=== PATIENT | female | born 1950 | race Caucasian/White ===

== ENCOUNTER 2020-11-06 09:43 | Outpatient (REF) | payer BC, SELFPAY ==
[2020-11-06 11:13] LABS: MANUAL DIFF FLAG NO
[2020-11-06 11:20] LABS: Basophils Percent Auto 0.8 % (0-2); Eosinophils Absolute Auto 0.3 X10*3/uL (0.0-0.4); Eosinophils Percent Auto 7.1 % (0-4); Hematocrit 38.3 % (37-47); Imm Gran Abs Auto 0.01 X10*3/uL (0.00-0.03); Imm Gran Pct Auto 0.2 % (0.0-0.4); Lymphocytes Absolute Auto 1.5 X10*3/uL (1.2-4.9); Lymphocytes Percent Auto 30.2 % (20-40); Mean Corpuscular HGB Conc 31.3 g/dl (31.0-35.0); Mean Corpuscular Hemoglobin 28.8 pg (27.0-33.0); Mean Corpuscular Volume 92.1 fL (80-98); Mean Platelet Volume 9.7 fL (9.4-12.3); Monocytes Absolute Auto 0.4 X10*3/uL (0.1-1.2); Monocytes Percent Auto 8.3 % (2-11); Neutrophils Absolute Auto 2.6 X10*3/uL (2.0-8.3); Neutrophils Percent Auto 53.4 % (45-73); Platelet Count 298 X10*3/uL (160-400); Red Blood Count 4.16 X10*6/uL (4.20-5.50); Red Cell Distribution Width 12.9 % (11.0-16.0); White Blood Count 4.8 X10*3/uL (4.8-10.8)
[2020-11-06 11:42] LABS: Alanine Aminotransferase 13 U/L (0-31); Albumin Level 4.2 g/dL (3.5-5.0); Alkaline Phosphatase 65 U/L (39-117); Anion Gap 12 (12-20); Aspartate Amino Transferase 19 U/L (5-31); Bilirubin Total 0.6 mg/dL (0.0-1.0); Blood Urea Nitrogen 12 mg/dL (9-16); Calcium 9.1 mg/dL (8.4-10.2); Carbon Dioxide 28 mmol/L (22-29); Chloride 105 mmol/L (96-108); Cholesterol 193 mg/dL; Estimated Glomerular Filt Rate > 60; Glucose Fasting 89 mg/dL (60-99); HDL Cholesterol 55 mg/dL; LDL Cholesterol Calculated 93 mg/dl; Potassium 4.1 mmol/l (3.3-5.1); Sodium 141 mmol/L (135-145); Total Protein 6.6 g/dL (6.5-8.0); Triglycerides 228 mg/dL
[2020-11-06 12:03] LABS: Ferritin 8 ng/mL (10-250); Vitamin B12 313 pg/mL (200-900); Vitamin D 25-OH Total 22.1 ng/mL (>30)
== END 2020-11-06 09:44 | disposition home or self-care (01) ==
LOC: HO.HMGCLDS 09:43
PROVIDERS: PCP Internal Medicine; Visit Provider Internal Medicine
DX: E78.9 Disorder of lipoprotein metabolism, unspecified (principal); I10 Essential (primary) hypertension; K21.9 Gastro-esophageal reflux disease without esophagitis; E55.9 Vitamin D deficiency, unspecified; R79.0 Abnormal level of blood mineral
CPT/HCPCS: 36415; 80053; 80061; 82306; 82607; 82728; 85025

== ENCOUNTER 2021-05-13 09:07 | Outpatient (REF) | payer BC, SELFPAY ==
[2021-05-13 11:12] LABS: MANUAL DIFF FLAG NO
[2021-05-13 11:21] LABS: Basophils Percent Auto 0.7 % (0-2); Eosinophils Absolute Auto 0.2 X10*3/uL (0.0-0.4); Eosinophils Percent Auto 4.4 % (0-4); Hematocrit 34.4 % (37-47); Hemoglobin 10.9 g/dl (12.0-16.0); Imm Gran Abs Auto 0.01 X10*3/uL (0.00-0.03); Imm Gran Pct Auto 0.2 % (0.0-0.4); Lymphocytes Absolute Auto 1.1 X10*3/uL (1.2-4.9); Lymphocytes Percent Auto 25.2 % (20-40); Mean Corpuscular HGB Conc 31.7 g/dl (31.0-35.0); Mean Corpuscular Volume 88.4 fL (80-98); Mean Platelet Volume 9.4 fL (9.4-12.3); Monocytes Absolute Auto 0.5 X10*3/uL (0.1-1.2); Monocytes Percent Auto 12.4 % (2-11); Neutrophils Absolute Auto 2.4 X10*3/uL (2.0-8.3); Neutrophils Percent Auto 57.1 % (45-73); Platelet Count 299 X10*3/uL (160-400); Red Blood Count 3.89 X10*6/uL (4.20-5.50); Red Cell Distribution Width 14.5 % (11.0-16.0); White Blood Count 4.3 X10*3/uL (4.8-10.8)
[2021-05-13 11:34] LABS: Alanine Aminotransferase 12 U/L (0-31); Albumin Level 4.1 g/dL (3.5-5.0); Alkaline Phosphatase 60 U/L (39-117); Anion Gap 12 (12-20); Aspartate Amino Transferase 21 U/L (5-31); Bilirubin Direct < 0.2 mg/dL (0.0-0.5); Bilirubin Total 0.3 mg/dL (0.0-1.0); Blood Urea Nitrogen 18 mg/dL (9-16); Calcium 9.6 mg/dL (8.4-10.2); Carbon Dioxide 26 mmol/L (22-29); Chloride 108 mmol/L (96-108); Estimated Glomerular Filt Rate > 60; Glucose Random 91 mg/dL (60-115); Potassium 4.3 mmol/L (3.3-5.1); Sodium 142 mmol/L (135-145); Total Protein 6.5 g/dL (6.5-8.0)
[2021-05-13 11:56] LABS: Ferritin 3 ng/mL (10-250)
[2021-05-13 12:26] LABS: Vitamin B12 869 pg/mL (200-900)
[2021-05-14 06:46] LABS: LDL Cholesterol Direct 117 mg/dL (<100)
== END 2021-05-13 09:08 | disposition home or self-care (01) ==
LOC: HO.HMGCLDS 09:07
PROVIDERS: PCP Internal Medicine; Visit Provider Internal Medicine
DX: Z00.01 Encounter for general adult medical examination with abnormal findings (principal); E53.8 Deficiency of other specified B group vitamins; E61.1 Iron deficiency; E78.9 Disorder of lipoprotein metabolism, unspecified; J45.909 Unspecified asthma, uncomplicated; K21.9 Gastro-esophageal reflux disease without esophagitis
CPT/HCPCS: 36415; 80048; 80076; 82607; 82728; 83721; 85025

== ENCOUNTER 2021-06-13 09:03 | Outpatient (REF) | payer BC, SELFPAY ==
[2021-06-13 11:25] LABS: MANUAL DIFF FLAG NO
[2021-06-13 11:39] LABS: Basophils Percent Auto 0.6 % (0-2); Eosinophils Absolute Auto 0.2 X10*3/uL (0.0-0.4); Eosinophils Percent Auto 5.2 % (0-4); Hematocrit 38.5 % (37-47); Hemoglobin 12.3 g/dl (12.0-16.0); Imm Gran Abs Auto 0.02 X10*3/uL (0.00-0.03); Imm Gran Pct Auto 0.4 % (0.0-0.4); Lymphocytes Absolute Auto 1.1 X10*3/uL (1.2-4.9); Mean Corpuscular HGB Conc 31.9 g/dl (31.0-35.0); Mean Corpuscular Hemoglobin 28.6 pg (27.0-33.0); Mean Corpuscular Volume 89.5 fL (80-98); Mean Platelet Volume 9.9 fL (9.4-12.3); Monocytes Absolute Auto 0.5 X10*3/uL (0.1-1.2); Monocytes Percent Auto 10.4 % (2-11); Neutrophils Absolute Auto 2.8 X10*3/uL (2.0-8.3); Neutrophils Percent Auto 59.4 % (45-73); Platelet Count 314 X10*3/uL (160-400); White Blood Count 4.6 X10*3/uL (4.8-10.8)
== END 2021-06-13 09:04 | disposition home or self-care (01) ==
LOC: HO.HMGCLDS 09:03
PROVIDERS: PCP Internal Medicine; Visit Provider Internal Medicine
DX: D64.9 Anemia, unspecified (principal); E61.1 Iron deficiency
CPT/HCPCS: 36415; 85025

== ENCOUNTER 2021-08-05 10:46 | Outpatient (REF) | payer BC, SELFPAY ==
[2021-08-05 13:59] LABS: MANUAL DIFF FLAG NO
[2021-08-05 14:08] LABS: Basophils Percent Auto 0.6 % (0-2); Eosinophils Absolute Auto 0.3 X10*3/uL (0.0-0.4); Eosinophils Percent Auto 5.4 % (0-4); Hematocrit 36.4 % (37-47); Hemoglobin 12.2 g/dl (12.0-16.0); Imm Gran Abs Auto 0.02 X10*3/uL (0.00-0.03); Imm Gran Pct Auto 0.4 % (0.0-0.4); Lymphocytes Absolute Auto 1.3 X10*3/uL (1.2-4.9); Lymphocytes Percent Auto 26.6 % (20-40); Mean Corpuscular HGB Conc 33.5 g/dl (31.0-35.0); Mean Corpuscular Hemoglobin 30.2 pg (27.0-33.0); Mean Corpuscular Volume 90.1 fL (80-98); Monocytes Absolute Auto 0.5 X10*3/uL (0.1-1.2); Monocytes Percent Auto 10.3 % (2-11); Neutrophils Absolute Auto 2.7 X10*3/uL (2.0-8.3); Neutrophils Percent Auto 56.7 % (45-73); Platelet Count 275 X10*3/uL (160-400); Red Blood Count 4.04 X10*6/uL (4.20-5.50); Red Cell Distribution Width 14.6 % (11.0-16.0); White Blood Count 4.8 X10*3/uL (4.8-10.8)
[2021-08-05 14:38] LABS: Alanine Aminotransferase 10 U/L (0-31); Alkaline Phosphatase 61 U/L (39-117); Anion Gap 13 (12-20); Aspartate Amino Transferase 17 U/L (5-31); Bilirubin Total 0.6 mg/dL (0.0-1.0); Blood Urea Nitrogen 17 mg/dL (9-16); Calcium 9.3 mg/dL (8.4-10.2); Carbon Dioxide 24 mmol/L (22-29); Chloride 107 mmol/L (96-108); Estimated Glomerular Filt Rate > 60; Glucose Random 99 mg/dL (60-115); Sodium 140 mmol/L (135-145); Total Protein 6.4 g/dL (6.5-8.0)
[2021-08-05 14:42] LABS: Ferritin 30 ng/mL (10-250)
== END 2021-08-05 10:47 | disposition home or self-care (01) ==
LOC: HO.HMGCLDS 10:46
PROVIDERS: PCP Internal Medicine; Visit Provider Internal Medicine
DX: D64.9 Anemia, unspecified (principal); E61.1 Iron deficiency
CPT/HCPCS: 36415; 80053; 82728; 85025

== ENCOUNTER 2022-02-26 11:34 | Outpatient (REF) | payer BC, SELFPAY ==
[2022-02-26 13:42] LABS: MANUAL DIFF FLAG NO
[2022-02-26 13:46] LABS: Basophils Percent Auto 0.6 % (0-2); Eosinophils Absolute Auto 0.3 X10*3/uL (0.0-0.4); Eosinophils Percent Auto 5.1 % (0-4); Hematocrit 38.3 % (37.0-47.0); Hemoglobin 12.2 g/dl (12.0-16.0); Imm Gran Abs Auto 0.01 X10*3/uL (0.00-0.03); Imm Gran Pct Auto 0.2 % (0.0-0.4); Lymphocytes Absolute Auto 1.1 X10*3/uL (1.2-4.9); Lymphocytes Percent Auto 22.1 % (20-40); Mean Corpuscular HGB Conc 31.9 g/dl (31.0-35.0); Mean Corpuscular Hemoglobin 29.6 pg (27.0-33.0); Mean Platelet Volume 9.7 fL (9.4-12.3); Monocytes Absolute Auto 0.5 X10*3/uL (0.1-1.2); Monocytes Percent Auto 10.3 % (2-11); Neutrophils Absolute Auto 3.1 x10*3/uL (2.0-8.3); Neutrophils Percent Auto 61.7 % (45-73); Platelet Count 309 X10*3/uL (160-400); Red Blood Count 4.12 X10*6/uL (4.20-5.50); Red Cell Distribution Width 13.5 % (11.0-16.0); White Blood Count 5.1 X10*3/uL (4.8-10.8)
[2022-02-26 14:02] LABS: Alanine Aminotransferase 13 U/L (0-31); Albumin Level 4.1 g/dL (3.5-5.0); Alkaline Phosphatase 59 U/L (39-117); Anion Gap 11 (12-20); Aspartate Amino Transferase 20 U/L (5-31); Bilirubin Total 0.5 mg/dL (0.0-1.0); Blood Urea Nitrogen 17 mg/dL (9-16); Calcium 9.6 mg/dL (8.4-10.2); Carbon Dioxide 29 mmol/L (22-29); Chloride 105 mmol/L (96-108); Estimated Glomerular Filt Rate > 60; Glucose Random 77 mg/dL (60-115); Sodium 141 mmol/L (135-145); Total Protein 6.9 g/dL (6.5-8.0)
[2022-02-26 14:23] LABS: Ferritin 19 ng/mL (10-250)
[2022-03-03 05:51] LABS: Vitamin D 25-OH, D2 <4 ng/mL; Vitamin D 25-OH, D3 24 ng/mL; Vitamin D 25-OH, Total 24 ng/mL (30-100)
== END 2022-02-26 11:35 | disposition home or self-care (01) ==
LOC: HO.HMGCLDS 11:34
PROVIDERS: PCP Internal Medicine; Visit Provider Internal Medicine
DX: I10 Essential (primary) hypertension (principal); E78.9 Disorder of lipoprotein metabolism, unspecified; J45.909 Unspecified asthma, uncomplicated; D64.9 Anemia, unspecified
CPT/HCPCS: 36415; 80053; 82306; 82728; 85025

== ENCOUNTER 2022-09-11 11:41 | Outpatient (REF) | payer BC, SELFPAY ==
[2022-09-11 13:58] LABS: Hemoglobin 12.8 g/dl (12.0-16.0)
[2022-09-11 14:14] LABS: Alanine Aminotransferase 12 U/L (0-31); Albumin Level 4.3 g/dL (3.5-5.0); Alkaline Phosphatase 65 U/L (39-117); Anion Gap 15 (12-20); Aspartate Amino Transferase 21 U/L (5-31); Blood Urea Nitrogen 13 mg/dL (9-16); Calcium 9.8 mg/dL (8.4-10.2); Carbon Dioxide 28 mmol/L (22-29); Chloride 105 mmol/L (96-108); Cholesterol 223 mg/dL; Estimated Glomerular Filt Rate > 60; Glucose Fasting 95 mg/dL (60-99); HDL Cholesterol 59 mg/dL; LDL Cholesterol Calculated 120 mg/dl; Potassium 4.1 mmol/L (3.3-5.1); Sodium 144 mmol/L (135-145); Total Protein 6.9 g/dL (6.5-8.0); Triglycerides 221 mg/dL
[2022-09-11 14:29] LABS: Bilirubin Total 0.7 mg/dL (0.0-1.0)
[2022-09-11 14:32] LABS: Ferritin 16 ng/mL (10-250)
[2022-09-11 14:39] LABS: Vitamin B12 784 pg/mL (200-900)
== END 2022-09-11 11:42 | disposition home or self-care (01) ==
LOC: HO.HMGCLDS 11:41
PROVIDERS: PCP Internal Medicine; Visit Provider Internal Medicine
DX: E61.1 Iron deficiency (principal); E78.9 Disorder of lipoprotein metabolism, unspecified; I10 Essential (primary) hypertension; J45.909 Unspecified asthma, uncomplicated; K21.9 Gastro-esophageal reflux disease without esophagitis; E53.8 Deficiency of other specified B group vitamins
CPT/HCPCS: 36415; 80053; 80061; 82607; 82728; 85014; 85018

== ENCOUNTER 2023-01-14 09:19 | Outpatient (REF) | payer BC, SELFPAY ==
[2023-01-14 11:13] LABS: MANUAL DIFF FLAG NO
[2023-01-14 11:24] LABS: Basophils Percent Auto 0.6 % (0-2); Eosinophils Absolute Auto 0.3 X10*3/uL (0.0-0.4); Eosinophils Percent Auto 5.2 % (0-4); Hematocrit 38.7 % (37.0-47.0); Hemoglobin 12.4 g/dl (12.0-16.0); Imm Gran Abs Auto 0.01 X10*3/uL (0.00-0.03); Imm Gran Pct Auto 0.2 % (0.0-0.4); Lymphocytes Absolute Auto 1.3 X10*3/uL (1.2-4.9); Lymphocytes Percent Auto 21.3 % (20-40); Mean Corpuscular Hemoglobin 28.8 pg (27.0-33.0); Mean Platelet Volume 9.6 fL (9.4-12.3); Monocytes Absolute Auto 0.7 X10*3/uL (0.1-1.2); Monocytes Percent Auto 10.5 % (2-11); Neutrophils Absolute Auto 3.9 x10*3/uL (2.0-8.3); Neutrophils Percent Auto 62.2 % (45-73); Platelet Count 343 X10*3/uL (160-400); Red Cell Distribution Width 14.2 % (11.0-16.0); White Blood Count 6.3 X10*3/uL (4.8-10.8)
[2023-01-14 11:49] LABS: Alanine Aminotransferase 18 U/L (0-31); Albumin Level 4.1 g/dL (3.5-5.0); Alkaline Phosphatase 67 U/L (39-117); Anion Gap 13 (12-20); Aspartate Amino Transferase 25 U/L (5-31); Bilirubin Total 0.8 mg/dL (0.0-1.0); Blood Urea Nitrogen 23 mg/dL (9-16); Calcium 10.4 mg/dL (8.4-10.2); Carbon Dioxide 27 mmol/L (22-29); Chloride 107 mmol/L (96-108); Cholesterol 230 mg/dL; Estimated Glomerular Filt Rate 54; Glucose Fasting 96 mg/dL (60-99); HDL Cholesterol 64 mg/dL; LDL Cholesterol Calculated 124 mg/dl; Potassium 3.9 mmol/L (3.3-5.1); Sodium 143 mmol/L (135-145); Total Protein 6.6 g/dL (6.5-8.0); Triglycerides 210 mg/dL
[2023-01-14 12:25] LABS: Ferritin 15 ng/mL (10-250); Vitamin B12 968 pg/mL (200-900)
== END 2023-01-14 09:20 | disposition home or self-care (01) ==
LOC: HO.HMGCLDS 09:19
PROVIDERS: PCP Internal Medicine; Visit Provider Internal Medicine
DX: I10 Essential (primary) hypertension (principal); E53.8 Deficiency of other specified B group vitamins; E61.1 Iron deficiency; E78.9 Disorder of lipoprotein metabolism, unspecified; F41.9 Anxiety disorder, unspecified; J45.909 Unspecified asthma, uncomplicated; K21.9 Gastro-esophageal reflux disease without esophagitis
CPT/HCPCS: 36415; 80053; 80061; 82607; 82728; 85025

== ENCOUNTER 2023-09-18 10:33 | Outpatient (AMB) | payer BC, SELFPAY ==
[2023-09-18 10:37] VITALS: BP 144/72; PULSE 81; O2SAT 97; BMI 27.4
--- NOTE | 2023-09-18 10:37 | MHC.PC.OV ---
Vital Signs 09/18/23 10:37 Height 5 ft 2.5 in Weight 152 lb BMI 27.4 BP 144/72 H Blood Pressure Location Rt brachial Position Sitting Pulse 81 Pulse Source Pulse Oximeter Pulse Oximetry (%) 97 Oxygen Delivery Method Room Air Intake Visit Reasons: PE Allergies No Known Allergies Allergy (Verified 02/25/23 13:15) Medication List - Last Reconciled 09/18/23 by Anabell Beard MD albuterol sulfate 90 mcg/actuation 2 puffs PO Q8H PRN 30 days amlodipine 5 mg PO DAILY 90 days calcium carbonate (Tums) PO PRN cholecalciferol (vitamin D3) 25 mcg PO DAILY pravastatin 20 mg PO DAILY 90 days vitamin B complex (B Complex-Vitamin B12 tablet) 1 tab PO DAILY Tobacco use date assessed: 09/18/23 Fall risk assessment: No Falls in past year Last assessed Fall Risk: 09/18/23 Dental Screening Dental Screen Date: 09/18/23 Did you have a dental visit in the last 12 months?: No Did you have a dental problem in the last 6 months where you did not have access to dental care?: No Was dental information given to patient?: Patient has dentist HPI PE HPI Details Patient is 73-year-old female came in today for physical exam Patient says that mammogram was done in February of this year at [facility] She does want have a colonoscopy Blood pressure continued to be slightly elevated, patient is on amlodipine 5 mg She does not want to increase the medication or change it. She said that she was start monitoring blood pressure at home and she will keep a log Patient will return in December for follow-up She is also taking pravastatin for lipid control She will have labs done today she forgot to do the labs She offers no new complaints today. [facility] Medical History Elevated blood pressure reading Breast screening B12 deficiency Iron deficiency Asthma, moderate Chronic GERD Lipid disorder Surgical History History of tooth extraction Family History Father HTN (hypertension) Hyperlipidemia Mother HTN (hypertension) Diabetes mellitus Myocardial infarction Stroke Maternal Grandfather No problems noted. Maternal Grandmother Heart disease Paternal Grandmother Cerebral hemorrhage Paternal Grandfather No problems noted. Brother No problems noted. Sister No problems noted. Daughter No problems noted. Daughter No problems noted. Social History Housing: House Alcohol intake: never Patient Tobacco Use Status: Former Tobacco user Quit Date: 1986 e-Cigarette/Vaping Use: Never Used Second Hand Smoke Exposure: No service: No Current occupational status: retired Cognitive needs: No Hearing needs: No Vision needs: No Questionnaire PHQ-9 Over the last 2 weeks, how often have you been bothered by any of the following problems? 1. Little interest or pleasure in doing things: not at all 2. Feeling down, depressed, or hopeless: not at all 3. Trouble falling or staying asleep, or sleeping too much: not at all 4. Feeling tired or having little energy: not at all 5. Poor appetite or overeating: not at all 6. Feeling bad about yourself - or that you are a failure or have let yourself or your family down: not at all 7. Trouble concentrating on things, such as reading the newspaper or watching television: not at all 8. Moving or speaking so slowly that other people could have noticed. Or the opposite - being so fidgety or restless that you have been moving around a lot more than usual: not at all 9. Thoughts that you would be better off or of hurting yourself in some way: not at all Total score: 0 Depression Screening Interpretation: Negative Depression Screening Done: Yes 65434 - PHQ-9 Billing: Yes Source: Developed by Drs. Julio Cesar Martinez, Jong Sims and colleagues, with an educational walter from [employer]. Thrive Questionnaire Date Thrive assessed: 02/25/23 AUDIT C Alcohol Use Questionnaire (AUDIT-C) 1. How often do you have a drink containing alcohol?: Never 3. How often do you have six or more drinks on one occasion?: Never Total Score: 0 Score Reviewed/Action Taken: Yes ZABRINA-7 AMB Questionnaire ZABRINA-7 Date ZABRINA - 7 assessed: 02/25/23 Source: Developed by Drs. Julio Cesar Martinez, Jong Sims and colleagues, with an educational walter from [employer]. Review of Systems Const Denies chills, Denies fever(s) and Denies headache(s) Eyes Denies blurry vision ENT Denies headache(s), Denies nasal discharge, Denies nasal obstruction, Denies odynophagia and Denies sinus pain Card Denies chest pain at rest and Denies chest pain with activity Resp Denies cough and Denies hemoptysis GI Denies diarrhea, Denies odynophagia, Denies vomiting and Denies hematemesis Reports as per HPI Musc Denies abnormal gait Skin/Breast Reports as per HPI Neuro Denies Neuro-related abnormal movements, Denies Abnormal speech present, Denies abnormal gait, Denies headache(s) and Denies Sensory deficit (Neuro) Psych Denies mood swings and Denies paranoia Endo Reports as per HPI Sammy/Lymph Reports as per HPI Aller/Immun Reports as per HPI Physical exam (Primary Care) Vital Signs: Last Vital Signs Pulse 81 09/18/23 10:37 BP 144/72 H 09/18/23 10:37 Pulse Ox 97 09/18/23 10:37 Oxygen Delivery Method Room Air 09/18/23 10:37 BMI result Body Mass Index 27.4 Tobacco/Smoking Status: Tobacco use Status Tobacco use date assessed 09/18/23 09/18/23 10:42 Patient Tobacco Use Status Former Tobacco user 09/18/23 10:42 e-Cigarette/Vaping Use Never Used 09/18/23 10:42 PHQ-9: PHQ-9 Score PHQ-9: Total score 0 09/18/23 10:58 Depression Screening Interpretation: Negative Thrive Assessment: Date of Thrive Assessment Date Thrive assessed 02/25/23 09/18/23 10:42 Const General: cooperative, comfortable and no acute distress Orientation/consciousness: patient oriented x3 HENMT Head: Yes normocephalic and Yes atraumatic Eyes General: appearance normal, both eyes and all related structures Pupils: Equal, round and reactive pupils present EOM: EOMs intact bilaterally Neck Neck: Yes supple and No lymphadenopathy Thyroid: Thyroid normal Lymphatic: no lymphadenopathy noted Chest Breast/axilla palpation: normal palpation of the breasts Resp Effort & Inspection: normal respiratory effort and able to speak in complete sentences Auscultation: clear to auscultation bilaterally Cardio Heart sounds: S1 normal heart sound present and S2 normal heart sound present GI Palpation (GI): Soft to palpation and nontender Auscultation: normal bowel sounds General: Yes no CVA tenderness Back/Spine/Pelvis Back: no CVA tenderness Skin General skin exam: elasticity normal and turgor normal Neuro General: patient oriented x3 and gait normal Cranial nerves: Yes Equal, round and reactive pupils present Speech: No Abnormal speech present Sensory Exam: No Sensory deficit (Neuro) Coordination: tandem gait normal and Romberg test negative Extrem Other: Severe disfiguring osteoarthritis small joints of hands General: Yes normal exam except as noted and No edema Assessment and Plan Assessment & Plan (1) Encounter for general adult medical examination with abnormal findings: Code(s): Z00.01 - Encounter for general adult medical examination with abnormal findings (2) Lipid disorder: Code(s): E78.9 - Disorder of lipoprotein metabolism, unspecified (3) Chronic GERD: Code(s): K21.9 - Gastro-esophageal reflux disease without esophagitis (4) Hypertension, essential: Code(s): I10 - Essential (primary) hypertension (5) Asthma, mild intermittent: Code(s): J45.20 - Mild intermittent asthma, uncomplicated Qualifiers: Asthma complication type: uncomplicated Qualified Code(s): J45.20 - Mild intermittent asthma, uncomplicated (6) Colonoscopy refused: Code(s): Z53.20 - Procedure and treatment not carried out because of patient's decision for unspecified reasons (7) Osteoarthritis of hands, bilateral: Code(s): M19.041 - Primary osteoarthritis, right hand; M19.042 - Primary osteoarthritis, left hand Qualifiers: Osteoarthritis type: primary Qualified Code(s): M19.041 - Primary osteoarthritis, right hand; M19.042 - Primary osteoarthritis, left hand Plan Patient is 73-year-old female came in today for physical exam Patient says that mammogram was done in February of this year at [facility] She does want have a colonoscopy Blood pressure continued to be slightly elevated, patient is on amlodipine 5 mg She does not want to increase the medication or change it. She said that she was start monitoring blood pressure at home and she will keep a log Patient will return in December for follow-up She is also taking pravastatin for lipid control She will have labs done today she forgot to do the labs She has severe osteoarthritis small joints of hands but still have full function of her hands She offers no new complaints today. Medications: Refilled pravastatin 20 mg PO DAILY 90 tabs 0RF 90 days amlodipine 5 mg PO DAILY 90 tabs 1RF 90 days Coding Level of Care Code Est Pt Prev Care >65y(59125) Diagnoses Encounter for general adult medical examination with abnormal findings Z00.01 Lipid disorder E78.9 Chronic GERD K21.9 Hypertension, essential I10 Mild intermittent asthma without complication J45.20 Asthma complication type: uncomplicated Colonoscopy refused Z53.20 Primary osteoarthritis of both hands M19.041; M19.042 Osteoarthritis type: primary
== END 2023-09-18 10:57 | disposition home or self-care (01) ==
PROVIDERS: Visit Provider Internal Medicine
DX: Z00.00 Encounter for general adult medical examination without abnormal findings (principal); E78.9 Disorder of lipoprotein metabolism, unspecified; K21.9 Gastro-esophageal reflux disease without esophagitis; I10 Essential (primary) hypertension; J45.20 Mild intermittent asthma, uncomplicated; Z53.20 Procedure and treatment not carried out because of patient's decision for unspecified reasons; M19.041 Primary osteoarthritis, right hand; M19.042 Primary osteoarthritis, left hand
CPT/HCPCS: 99397

== ENCOUNTER 2023-09-18 11:00 | Outpatient (REF) | payer BC, SELFPAY ==
[2023-09-18 14:08] LABS: Alanine Aminotransferase 12 U/L (0-31); Albumin Level 4.1 g/dL (3.5-5.0); Alkaline Phosphatase 66 U/L (39-117); Anion Gap 14 (12-20); Aspartate Amino Transferase 20 U/L (5-31); Bilirubin Total 0.4 mg/dL (0.0-1.0); Blood Urea Nitrogen 11 mg/dL (9-16); Carbon Dioxide 26 mmol/L (22-29); Chloride 105 mmol/L (96-108); Cholesterol 190 mg/dL (<200); Estimated Glomerular Filt Rate > 60; Glucose Fasting 96 mg/dL (60-99); HDL Cholesterol 61 mg/dL (>40); LDL Cholesterol Calculated 98 mg/dL (<100); Sodium 141 mmol/L (135-145); Total Protein 7.1 g/dL (6.5-8.0); Triglycerides 158 mg/dL (<150)
[2023-09-18 14:25] LABS: Ferritin 10 ng/mL (10-250)
[2023-09-18 14:26] LABS: Vitamin B12 676 pg/mL (200-900)
[2023-09-22 15:33] LABS: Vitamin D 25-OH, D2 <4 ng/mL; Vitamin D 25-OH, D3 20 ng/mL; Vitamin D 25-OH, Total 20 ng/mL (30-100)
== END 2023-09-18 11:01 | disposition home or self-care (01) ==
LOC: HO.HMGCLDS 11:00
PROVIDERS: PCP Internal Medicine; Visit Provider Internal Medicine
DX: E78.9 Disorder of lipoprotein metabolism, unspecified (principal); K21.9 Gastro-esophageal reflux disease without esophagitis; E53.8 Deficiency of other specified B group vitamins; E61.1 Iron deficiency; I10 Essential (primary) hypertension; J45.20 Mild intermittent asthma, uncomplicated
CPT/HCPCS: 36415; 80053; 80061; 82306; 82607; 82728

== ENCOUNTER 2023-11-09 10:01 | Outpatient (AMB) | payer BC, SELFPAY ==
[2023-11-09 11:51] VITALS: BP 160/90; PULSE 82; TEMP 36.3; O2SAT 96; BMI 27.7
--- NOTE | 2023-11-09 11:51 | AM.OFFWIN_ITS ---
Intake Vital Signs 11/09/23 11:51 Height 5 ft 2.5 in Weight 69.853 kg BMI 27.7 BP 160/90 H Blood Pressure Location Lt brachial Position Sitting Pulse 82 Pulse Source Pulse Oximeter Temp 97.3 F Temp Source Temporal Artery Scan Pulse Oximetry (%) 96 Oxygen Delivery Method Room Air Intake Visit Reasons: EP, right shoulder pain due to fall Intake Note: pt is here today for rt shoulder pain due to fall started Thursday Patient Tobacco Use Status: Former Tobacco user Quit Date: 1986 Allergies No Known Allergies Allergy (Verified 11/09/23 11:52) Do you need a note to return to daycare/school/sports/work: No HPI HPI Comments History of Present Illness Details 1203 73-year-old female history anxiety, asth ma, arthritis, vitamin B12 deficiency presents with right shoulder pain status post fall on Thursday. Patient hit her shoulder, this was mechanical fall. Denies preceding symptoms to fall. Denies head strike, loss of consciousness. Not on blood thinners. Denies chest pain, shortness of breath, numbness, tingling, headache, vision changes, dizziness, weakness, abdominal pain, nausea and vomiting at this time Physical exam full range of motion to bilateral shoulders slight discomfort with range of motion of right shoulder there is also tenderness to palpation overlying right humeral head. No step-offs or deformities. 2+ radial pulses equal bilateral no wrist drop. Normal sensation distally. Likely sprain or strain. Unlikely fracture, dislocation. No signs of neurovascular compromise, threat to Wang. No signs of traumatic injury to head, neck, chest, abdomen or pelvis. Patient not on blood thinners unlikely hematoma. Plan at this time imaging. Will call patient with result after. Educated patient on diagnosis and treatment plan, answered all question, patient verbalizes understanding. At this time patient will be discharged home, advised to return with new or worsening symptoms. Educated on worrisome signs and symptoms and when to return. At this time I feel comfortable discharge home. [facility] Medical History Elevated blood pressure reading Breast screening B12 deficiency Iron deficiency Asthma, moderate Chronic GERD Lipid disorder Surgical History History of tooth extraction Family History Father HTN (hypertension) Hyperlipidemia Mother HTN (hypertension) Diabetes mellitus Myocardial infarction Stroke Maternal Grandfather No problems noted. Maternal Grandmother Heart disease Paternal Grandmother Cerebral hemorrhage Paternal Grandfather No problems noted. Brother No problems noted. Sister No problems noted. Daughter No problems noted. Daughter No problems noted. Social History Housing: House Alcohol intake: never Patient Tobacco Use Status: Former Tobacco user Quit Date: 1986 e-Cigarette/Vaping Use: Never Used Second Hand Smoke Exposure: No service: No Current occupational status: retired Cognitive needs: No Hearing needs: No Vision needs: No Review of Systems Const Details: Constitutional : No Weight loss, No Fever, No Chills, No Fatigue, No Malaise ENT/Mouth : No sore throat, No Rhinorrhea Eyes: No Eye Pain, No Swelling, No Redness Cardiovascular : No Chest Pain, No SOB, No Dyspnea on Exertion, No Orthopnea, No Edema, No Palpitations Respiratory : No Cough, No Sputum, No Wheezing Gastrointestinal : No Nausea, No Vomiting, No Diarrhea, No Constipation, No abdominal Pain, No Hematochezia, No Melena Genitourinary : No Dysuria, No Urinary Frequency, No Hematuria, Musculoskeletal : + joint pain, No Myalgias, + Joint Swelling Skin : No Skin Lesions, No rash Neuro : No Weakness, No Numbness, No Dizziness, No Headache Psych : No Anxiety/Panic, No Depression All other systems reviewed and are negative All systems reviewed & are unremarkable except as noted in HPI and below Physical Exam Vital Signs: Last Vital Signs Temp 97.3 F 11/09/23 11:51 Pulse 82 11/09/23 11:51 BP 160/90 H 11/09/23 11:51 Pulse Ox 96 11/09/23 11:51 Oxygen Delivery Method Room Air 11/09/23 11:51 BMI result Body Mass Index 27.7 vss Appearance: Alert.? Oriented X3.? No acute distress.? Head: Normocephalic, atraumatic, no step-offs or deformities Eyes: Pupils equal, round and reactive to light.? CVS: Normal heart rate and rhythm.? Pulses normal.? Respiratory: No respiratory distress.? Breath sounds normal.? Abdomen: Soft and nontender.? Skin: Skin warm and dry.? Normal skin color.? Normal skin turgor.? Extremities: No lower extremity edema.? No calf ttp. 5/5 strength to bilateral upper and lower extremities full range of motion to bilateral shoulders slight discomfort with range of motion of right shoulder there is also tenderness to palpation overlying right humeral head. No step-offs or deformities. 2+ radial pulses equal bilateral no wrist drop. Normal sensation distally. Neuro: Oriented X 3.? No motor deficit.? No sensory deficit. CN 2-12 intact Assessment & Plan Assessment & Plan (1) Right shoulder pain: Code(s): M25.511 - Pain in right shoulder (2) Fall: Code(s): W19.XXXA - Unspecified fall, initial encounter Plan Take your medications as prescribed. If you were prescribed antibiotics today, it is important that you take your medication to their entirety, do not skip any doses, do not finish them early. Follow-up with your primary care provider this week. Return to the emergency department with new or worsening symptoms. Such as fevers, chills, chest pain, shortness of breath, nausea, vomiting, dizziness, headache, vision changes, lethargy In case of emergency call 911 Orders: Orders XR shoulder RT min 2V Today M25.511 - Pain in right shoulder, W19.XXXA - Unspecified fall, initial encounter Coding Level of Care Code Est Pt Level 3 (69479) Diagnoses Right shoulder pain M25.511 Fall W19.XXXA
== END 2023-11-09 12:25 | disposition home or self-care (01) ==
PROVIDERS: PCP Internal Medicine; Visit Provider Physician Assistant
DX: M25.511 Pain in right shoulder (principal); W19.XXXA Unspecified fall, initial encounter
CPT/HCPCS: 99213

== ENCOUNTER 2023-11-09 12:09 | Outpatient (REF) | payer BC, SELFPAY ==
--- NOTE | ~2023-11-09 | XR_ITS ---
EXAMINATION: XR CHEST CLINICAL INFORMATION: Pain right shoulder. COMPARISON: None available. TECHNIQUE: Frontal view of the chest was obtained. FINDINGS: Lungs clear. Cardiomediastinal silhouette normal. Question hiatal hernia Surrounding bone and soft tissues unremarkable. . XR/XR chest 1V IMPRESSION: 1. No acute disease. 2. Question hiatal hernia.
--- NOTE | ~2023-11-09 | XR_ITS ---
EXAMINATION: XR SHOULDER, RIGHT CLINICAL INFORMATION: Pain right shoulder COMPARISON: None available. TECHNIQUE: AP external rotation, Grashey, scapular Y, and axillary views of the right shoulder. FINDINGS: Glenohumeral joint: There is irregularity of the inferior aspect of the glenoid compatible with glenoid fracture. Suspect acute or subacute fracture. Acromioclavicular joint normal. Surrounding bone and soft tissues unremarkable. XR/XR shoulder RT min 2V IMPRESSION: Irregularity of the inferior aspect of the glenoid compatible glenoid fracture likely acute or subacute.
== END 2023-11-09 12:10 | disposition home or self-care (01) ==
LOC: HO.HMGCX 12:09
PROVIDERS: PCP Internal Medicine; Visit Provider Physician Assistant
DX: M25.511 Pain in right shoulder (principal); W19.XXXA Unspecified fall, initial encounter
CPT/HCPCS: 71045; 73030

== ENCOUNTER 2024-03-24 10:22 | Outpatient (REF) | payer BC, SELFPAY ==
[2024-03-24 13:05] LABS: MANUAL DIFF FLAG NO
[2024-03-24 13:23] LABS: Basophils Percent Auto 0.8 % (0-2); Eosinophils Absolute Auto 0.3 X10*3/uL (0.0-0.4); Eosinophils Percent Auto 5.4 % (0-4); Hemoglobin 10.6 g/dl (12.0-16.0); Imm Gran Abs Auto 0.02 X10*3/uL (0.00-0.03); Imm Gran Pct Auto 0.4 % (0.0-0.4); Lymphocytes Absolute Auto 1.1 X10*3/uL (1.2-4.9); Mean Corpuscular HGB Conc 31.2 g/dl (31.0-35.0); Mean Corpuscular Hemoglobin 25.8 pg (27.0-33.0); Mean Corpuscular Volume 82.7 fL (80.0-98.0); Mean Platelet Volume 9.1 fL (9.4-12.3); Monocytes Absolute Auto 0.6 X10*3/uL (0.1-1.2); Monocytes Percent Auto 11.7 % (2-11); Neutrophils Absolute Auto 3.2 x10*3/uL (2.0-8.3); Neutrophils Percent Auto 60.7 % (45-73); Platelet Count 359 X10*3/uL (160-400); Red Blood Count 4.11 X10*6/uL (4.20-5.50); Red Cell Distribution Width 15.4 % (11.0-16.0); White Blood Count 5.2 X10*3/uL (4.8-10.8)
[2024-03-24 13:47] LABS: Alanine Aminotransferase 15 U/L (0-31); Albumin Level 4.2 g/dL (3.5-5.0); Alkaline Phosphatase 60 U/L (39-117); Anion Gap 15 (12-20); Aspartate Amino Transferase 20 U/L (5-31); Bilirubin Total 0.5 mg/dL (0.0-1.0); Blood Urea Nitrogen 14 mg/dL (9-16); Calcium 10.2 mg/dL (8.4-10.2); Carbon Dioxide 25 mmol/L (22-29); Chloride 104 mmol/L (96-108); Cholesterol 210 mg/dL (<200); Estimated Glomerular Filt Rate > 60; Glucose Fasting 91 mg/dL (60-99); HDL Cholesterol 62 mg/dL (>40); LDL Cholesterol Calculated 112 mg/dL (<100); Potassium 4.1 mmol/L (3.3-5.1); Sodium 140 mmol/L (135-145); Total Protein 7.3 g/dL (6.5-8.0); Triglycerides 184 mg/dL (<150)
[2024-03-24 14:14] LABS: Vitamin B12 427 pg/mL (200-900)
== END 2024-03-24 10:23 | disposition home or self-care (01) ==
LOC: HO.HMGCLDS 10:22
PROVIDERS: PCP Internal Medicine; Visit Provider Internal Medicine
DX: E78.9 Disorder of lipoprotein metabolism, unspecified (principal); E61.1 Iron deficiency; J45.909 Unspecified asthma, uncomplicated; E53.8 Deficiency of other specified B group vitamins; I10 Essential (primary) hypertension
CPT/HCPCS: 36415; 80053; 80061; 82607; 85025

== ENCOUNTER 2024-03-29 09:33 | Outpatient (AMB) | payer BC, SELFPAY ==
[2024-03-29 09:41] VITALS: BP 142/84; PULSE 75; O2SAT 97; BMI 28.0
--- NOTE | 2024-03-29 09:41 | A.OFFPC_ITS ---
Vital Signs 03/29/24 09:41 Height 5 ft 2.5 in Weight 155 lb 8 oz BMI 28.0 BP 142/84 H Blood Pressure Location Lt brachial Position Sitting Pulse 75 Pulse Source Pulse Oximeter Pulse Oximetry (%) 97 Oxygen Delivery Method Room Air Intake Visit Reasons: 7 month fu Allergies No Known Allergies Allergy (Verified 03/29/24 09:41) Medication List - Last Reconciled 03/29/24 by Anabell Beard MD albuterol sulfate 90 mcg/actuation 2 puffs PO Q8H PRN 30 days amlodipine 5 mg PO DAILY 90 days calcium carbonate (Tums) PO PRN cholecalciferol (vitamin D3) 25 mcg PO DAILY pravastatin 20 mg PO DAILY 90 days vitamin B complex (B Complex-Vitamin B12 tablet) 1 tab PO DAILY Tobacco use date assessed: 03/29/24 Fall risk assessment: 1 Fall in past year Last assessed Fall Risk: 03/29/24 Dental Screening Dental Screen Date: 03/29/24 Did you have a dental visit in the last 12 months?: Yes Did you have a dental problem in the last 6 months where you did not have access to dental care?: No Was dental information given to patient?: Patient has dentist HPI 7 month fu HPI Details Patient is a 73-year-old female came in today for her regular follow-up appointment Patient had a fracture of her right shoulder secondary to fall at home in October She has recovered from fracture and has full range of motion now Patient had labs done recently her hemoglobin came back at 10.6 It was 12.4 early 2022 Patient says that she does not have any rectal bleeding or any the other source of bleeding I am starting her on iron supplement, patient will get it [id number] And will repeat CBC again in 2 months Blood pressure is slightly elevated today, she is on amlodipine 5 mg daily no side effects Lipid disorder: Continue pravastatin 20 mg and diet-controlled Asthma is stable with ProAir inhaler as needed [facility] Medical History Elevated blood pressure reading Breast screening B12 deficiency Iron deficiency Asthma, moderate Chronic GERD Lipid disorder Surgical History History of tooth extraction Family History Father HTN (hypertension) Hyperlipidemia Mother HTN (hypertension) Diabetes mellitus Myocardial infarction Stroke Maternal Grandfather No problems noted. Maternal Grandmother Heart disease Paternal Grandmother Cerebral hemorrhage Paternal Grandfather No problems noted. Brother No problems noted. Sister No problems noted. Daughter No problems noted. Daughter No problems noted. Social History Housing: House Alcohol intake: never Patient Tobacco Use Status: Former Tobacco user Quit Date: 1986 e-Cigarette/Vaping Use: Never Used Second Hand Smoke Exposure: No service: No Current occupational status: retired Cognitive needs: No Hearing needs: No Vision needs: No Questionnaire Thrive Questionnaire Date Thrive assessed: 02/25/23 AUDIT C Alcohol Use Questionnaire (AUDIT-C) 1. How often do you have a drink containing alcohol?: Never 3. How often do you have six or more drinks on one occasion?: Never Total Score: 0 Score Reviewed/Action Taken: Yes ZABRINA-7 AMB Questionnaire ZABRINA-7 Date ZABRINA - 7 assessed: 02/25/23 Source: Developed by Drs. Julio Cesar Martinez, Summer Donato, Jong Asif and colleagues, with an educational walter from [employer]. Review of Systems Const Denies chills and Denies fever(s) ENT Denies epistaxis and Denies nasal discharge Card Denies chest pain Resp Denies chest congestion, Denies cough and Denies hemoptysis GI Denies diarrhea and Denies nausea Skin/Breast Denies rash Neuro Reports no additional complaints Psych Reports no additional complaints Endo Reports no additional complaints Physical exam (Primary Care) Vital Signs: Last Vital Signs Pulse 75 03/29/24 09:41 BP 142/84 H 03/29/24 09:41 Pulse Ox 97 03/29/24 09:41 Oxygen Delivery Method Room Air 03/29/24 09:41 BMI result Body Mass Index 28.0 Tobacco/Smoking Status: Tobacco use Status Tobacco use date assessed 03/29/24 03/29/24 09:44 Patient Tobacco Use Status Former Tobacco user 03/29/24 09:44 e-Cigarette/Vaping Use Never Used 03/29/24 09:44 Thrive Assessment: Date of Thrive Assessment Date Thrive assessed 02/25/23 03/29/24 09:44 Const General: cooperative, comfortable and no acute distress Orientation/consciousness: patient oriented x3 HENMT Head: Yes normocephalic Eyes General: appearance normal, both eyes and all related structures Neck Neck: Yes supple Resp Effort & Inspection: normal respiratory effort, no cough and no stridor Cardio Rhythm: regular rhythm Heart sounds: S1 normal heart sound present and S2 normal heart sound present Skin General skin exam: turgor normal Neuro General: patient oriented x3, tone normal and moves all extremities Extrem Right lower extremity: no edema Left lower extremity: no edema Assessment and Plan Assessment & Plan (1) Hypertension, essential: Code(s): I10 - Essential (primary) hypertension (2) Lipid disorder: Code(s): E78.9 - Disorder of lipoprotein metabolism, unspecified (3) Chronic GERD: Code(s): K21.9 - Gastro-esophageal reflux disease without esophagitis (4) Asthma, mild intermittent: Code(s): J45.20 - Mild intermittent asthma, uncomplicated Qualifiers: Asthma complication type: uncomplicated Qualified Code(s): J45.20 - Mild intermittent asthma, uncomplicated (5) Osteoarthritis of hands, bilateral: Code(s): M19.041 - Primary osteoarthritis, right hand; M19.042 - Primary osteoarthritis, left hand Qualifiers: Osteoarthritis type: primary Qualified Code(s): M19.041 - Primary osteoarthritis, right hand; M19.042 - Primary osteoarthritis, left hand (6) Iron deficiency: Code(s): E61.1 - Iron deficiency (7) B12 deficiency: Code(s): E53.8 - Deficiency of other specified B group vitamins (8) Anemia: Code(s): D64.9 - Anemia, unspecified Qualifiers: Anemia type: iron deficiency Iron deficiency anemia type: unspecified iron deficiency Qualified Code(s): D50.9 - Iron deficiency anemia, unspecified Plan atient is a 73-year-old female came in today for her regular follow-up appointment Patient had a fracture of her right shoulder secondary to fall at home in October She has recovered from fracture and has full range of motion now Patient had labs done recently her hemoglobin came back at 10.6 It was 12.4 early 2022 Patient says that she does not have any rectal bleeding or any the other source of bleeding I am starting her on iron supplement, patient will get it [id number] And will repeat CBC again in 2 months Blood pressure is slightly elevated today, she is on amlodipine 5 mg daily no side effects Lipid disorder: Continue pravastatin 20 mg and diet-controlled Asthma is stable with ProAir inhaler as needed Tylenol as needed for osteoarthritis Orders: Orders Complete Blood Count Auto Diff Today D50.9 - Iron deficiency anemia, unspecified, E53.8 - Deficiency of other specified B group vitamins, E61.1 - Iron deficiency Ferritin Today D50.9 - Iron deficiency anemia, unspecified, E53.8 - Deficiency of other specified B group vitamins, E61.1 - Iron deficiency Vitamin B12 Today D50.9 - Iron deficiency anemia, unspecified, E53.8 - Deficiency of other specified B group vitamins, E61.1 - Iron deficiency Coding Level of Care Code Est Pt Level 4 (65273) Diagnoses Hypertension, essential I10 Lipid disorder E78.9 Chronic GERD K21.9 Mild intermittent asthma without complication J45.20 Asthma complication type: uncomplicated Primary osteoarthritis of both hands M19.041; M19.042 Osteoarthritis type: primary Iron deficiency E61.1 B12 deficiency E53.8 Iron deficiency anemia, unspecified iron deficiency anemia type D50.9 Anemia type: iron deficiency Iron deficiency anemia type: unspecified iron deficiency
== END 2024-03-29 10:27 | disposition home or self-care (01) ==
PROVIDERS: PCP Internal Medicine; Visit Provider Internal Medicine
DX: I10 Essential (primary) hypertension (principal); E78.9 Disorder of lipoprotein metabolism, unspecified; K21.9 Gastro-esophageal reflux disease without esophagitis; J45.20 Mild intermittent asthma, uncomplicated; M19.041 Primary osteoarthritis, right hand; M19.042 Primary osteoarthritis, left hand; E61.1 Iron deficiency; E53.8 Deficiency of other specified B group vitamins
CPT/HCPCS: 99214

== ENCOUNTER 2024-05-09 18:53 | Emergency (ER) | payer BC, SELFPAY ==
--- NOTE | ~2024-05-09 | XR_ITS ---
EXAMINATION: Left shoulder and left humerus x-ray CLINICAL INFORMATION: Fall COMPARISON: None. TECHNIQUE: 3 views of the left shoulder and 2 views of the left humerus FINDINGS: Left humerus: Bone alignment is normal. No fracture or dislocation. Normal joint spaces. Normal soft tissues. Left shoulder: Bone alignment is normal. No fracture or dislocation. Normal joint spaces. Degenerative changes of the greater tuberosity. Normal soft tissues. XR/XR shoulder LT min 2V IMPRESSION: No fracture or dislocation.
--- NOTE | ~2024-05-09 | XR_ITS ---
EXAMINATION: Left shoulder and left humerus x-ray CLINICAL INFORMATION: Fall COMPARISON: None. TECHNIQUE: 3 views of the left shoulder and 2 views of the left humerus FINDINGS: Left humerus: Bone alignment is normal. No fracture or dislocation. Normal joint spaces. Normal soft tissues. Left shoulder: Bone alignment is normal. No fracture or dislocation. Normal joint spaces. Degenerative changes of the greater tuberosity. Normal soft tissues. XR/XR humerus LT IMPRESSION: No fracture or dislocation.
[2024-05-09 20:41] VITALS: BP 182/98; PULSE 74; RESP 18; TEMP 36.6; O2SAT 98; BMI 27.9
--- NOTE | 2024-05-09 20:42 | ED_ITS ---
HPI - Fall General Chief Complaint: Extremity Injury, Upper Stated Complaint: fell left shoulder inj Time Seen by Provider: 05/09/24 22:51 Source: patient and family Mode of arrival: ambulatory History of Present Illness ED Provider: Dr Cochran HPI Narrative: 74-year-old female states that she was leaving the restaurant earlier today, was holding the door for her when she tripped over an object and fell onto her left side without head strike or loss of consciousness but now states she is having significant pain and discomfort to the left upper extremity and is unable to ABduct. Related Data Home Medications ?Medication ?Instructions ?Recorded ?Confirmed calcium carbonate [Tums] PO PRN 11/13/20 03/29/24 cholecalciferol (vitamin D3) 25 25 mcg PO DAILY 11/13/20 03/29/24 mcg (1,000 unit) capsule vitamin B complex (B 1 tab PO DAILY 11/13/20 03/29/24 Complex-Vitamin B12 tablet) Previous Rx's ?Medication ?Instructions ?Recorded amlodipine 5 mg tablet 5 mg PO DAILY 90 days #90 tabs 09/18/23 pravastatin 20 mg tablet 20 mg PO DAILY 90 days #90 tabs 02/18/24 albuterol sulfate 90 mcg/actuation 2 puff PO Q8H PRN bronchospasm 30 05/06/24 aerosol inhaler days #8.5 grams Allergies Allergy/AdvReac Type Severity Reaction Status Date / Time No Known Allergies Allergy Verified 05/09/24 20:45 Review of Systems Review of Systems: Pertinent positives and negatives as stated in [facility] Past Medical History Source: nursing notes reviewed Medical History Elevated blood pressure reading Breast screening B12 deficiency Iron deficiency Asthma, moderate Chronic GERD Lipid disorder Surgical History History of tooth extraction Family History Family History Father HTN (hypertension) Hyperlipidemia Mother HTN (hypertension) Diabetes mellitus Myocardial infarction Stroke Maternal Grandfather No problems noted. Maternal Grandmother Heart disease Paternal Grandmother Cerebral hemorrhage Paternal Grandfather No problems noted. Brother No problems noted. Sister No problems noted. Daughter No problems noted. Daughter No problems noted. Social History Social History Housing: House Alcohol intake: never Patient Tobacco Use Status: Former Tobacco user Smoked in Last 30 Days: No e-Cigarette/Vaping Use: Never Used Second Hand Smoke Exposure: No Use of substances other than those prescribed or required for medical reasons: No Advance Directives: No Advance Directives Information Provided: No Do you have a plan to hurt others: No Plan service: No Current occupational status: retired Cognitive needs: No Hearing needs: No Vision needs: No Physical Exam Vital Signs: Vital Signs: Last Vital Signs Temp 97.9 F 05/09/24 23:31 Pulse 74 05/09/24 23:31 Resp 16 05/09/24 23:31 BP 167/84 H 05/09/24 23:31 Pulse Ox 96 05/09/24 23:31 O2 Del Method Room Air 05/09/24 23:31 BMI result Body Mass Index 27.9 VITAL SIGNS: Reviewed. GENERAL: Well developed, well nourished, in no acute distress. HEAD: Normocephalic/atraumatic EYES: PERRLA, EOMI LUNGS: Normal breath sounds. No adventitious sounds or accessory muscle use. SpO2<96> CARDIOVASCULAR: Regular rate and rhythm without noted murmurs ABDOMEN: Soft, non-tender, non-distended with bowel sounds. MUSCULOSKELETAL: No tenderness, deformities, or effusions noted on gross inspection. EXTREMITIES: No cyanosis, clubbing or edema. LUE: No obvious deformity, patient is unable to ab-duct at the shoulder, neurovascularly intact distal, no pain at the elbow there is full range of motion of the elbow, full range of motion at the wrist and no pain over palpation of wrist bones. SKIN: Inspection of the skin reveals no rashes NEUROLOGIC: Alert and oriented x 4. Strength and sensation to light touch were grossly intact x 4. Course Course Course Narrative: This is a rapid medical exam completed by Paulino ABRAHAM: Additional HPI, ROS, PE not included below will be deferred to primary provider. Was holding the door to allow her , in a wheelchair, when she backed up into a metal object and fell onto the sidewalk. Pain in left shoulder area Medications Administered Discontinued Medications Generic Name Dose Route Start Last Admin Trade Name Freq PRN Reason Stop Dose Admin Acetaminophen 650 mg 05/09/24 20:44 05/09/24 22:23 Acetaminophen 325 Mg Tablet PO 05/09/24 20:45 650 mg ONCE ONE Administration Ibuprofen 400 mg 05/09/24 23:15 05/09/24 23:26 Ibuprofen 400 Mg Tablet PO 05/09/24 23:16 400 mg ONCE ONE Administration Medical Decision Making Medical Decision Making MDM Narrative: 74-year-old female with history and clinical presentation suggestive of possible rotator cuff injury versus fracture versus dislocation. I reviewed imaging studies which are negative for fractures or dislocations. Patient placed in a sling and given combination analgesics. She was also provided with a referral and instructed to call in the morning. Differential Diagnosis Differential Diagnoses: The differential diagnosis associated with the presentation includes Please see the discussion above Admission/Observation Consideration of admission/observation: Escalation of care including admission/observation considered Please see the discussion above Radiology Impression Discussion of test interpretation with radiology: I have reviewed the radiol ogist's reading. Radiologist Impression: Please see the discussion above External Record Review External record reviewed: Outpatient record, Prior outpatient labs and Prior outpatient radiology Critical Care Time Critical Care Time Critical Care Time: Yes Total Critical Care Time: 30 Attestation: I personally attest to this time spent taking care of the patient. Discharge Plan Discharge Clinical Impression: Fall, Left shoulder pain, Injury of left rotator cuff Patient Disposition: Home, Self-Care Instructions: Rotator Cuff Injury (ED), Fall Prevention (ED), Shoulder Pain (ED) Additional Instructions: 1. X-rays are negative for fracture or dislocation, strongly suspect the possibility of rotator cuff injury. 2. Please call the referral listed below in the morning to set up an appointment for re-evaluation further outpatient management. Return to the ER for any worsening symptoms. Prescriptions: No Action pravastatin 20 mg tablet 20 mg PO DAILY 90 Days Qty: 90 0RF albuterol sulfate 90 mcg/actuation HFA aerosol inhaler 2 puff PO Q8H PRN (Reason: bronchospasm) 30 Days Qty: 8.5 2RF calcium carbonate PO PRN vitamin B complex [B Complex-Vitamin B12] Tablet 1 tab PO DAILY cholecalciferol (vitamin D3) 25 mcg (1,000 unit) capsule 25 mcg PO DAILY amlodipine 5 mg tablet 5 mg PO DAILY 90 Days Qty: 90 1RF Referrals: Goyo Ashley MD [Physician] - (Highly suspect rotator cuff injury ) Interventions: ED Discharge Assessment Last Done: 05/09/24 23:31 Discharge Date/Time: 05/09/24 23:32 Print Language: Yoruba
[2024-05-09] MEDS: Acetaminophen 325 MG TABLET 650 MG PO (22:23)
--- NOTE | 2024-05-09 22:24 | PC.NURSE ---
pt from home, a&ox4, respirations even and unlabored, pt reporting fall at home where she fell on her left shoulder, pt reporting 10/10 pain with movement but reports pain subsides with less movement. pt medicated per mar at this time, tolerated well with water.
[2024-05-09 23:19] VITALS: BP 167/84; PULSE 74; RESP 16; TEMP 36.6; O2SAT 96
[2024-05-09] MEDS: Ibuprofen 400 MG TABLET PO (23:26)
[2024-05-09 23:31] VITALS: BP 167/84; PULSE 74; RESP 16; TEMP 36.6; O2SAT 96
--- NOTE | 2024-05-09 23:32 | PC.NURSE ---
left shoulder sling applied at this time.
== END 2024-05-09 23:32 | disposition home or self-care (01) ==
PROVIDERS: Emergency Provider Student in an Organized Health Care Education/Training Program; PCP Psychiatry & Neurology Neurology
DX: S46.002A Unspecified injury of muscle(s) and tendon(s) of the rotator cuff of left shoulder, initial encounter (principal); S49.92XA Unspecified injury of left shoulder and upper arm, initial encounter; M25.512 Pain in left shoulder; W01.10XA Fall on same level from slipping, tripping and stumbling with subsequent striking against unspecified object, initial encounter; Y93.9 Activity, unspecified; Y92.009 Unspecified place in unspecified non-institutional (private) residence as the place of occurrence of the external cause; Y99.8 Other external cause status; Z79.899 Other long term (current) drug therapy
CPT/HCPCS: 73030; 73060; 99283; 99284

== ENCOUNTER 2024-10-05 08:35 | Outpatient (REF) | payer BC, SELFPAY ==
[2024-10-05 10:42] LABS: MANUAL DIFF FLAG NO
[2024-10-05 10:49] LABS: Basophils Absolute Auto 0.1 X10*3/uL (0.0-0.2); Eosinophils Absolute Auto 0.3 X10*3/uL (0.0-0.4); Eosinophils Percent Auto 6.7 % (0-4); Hematocrit 38.1 % (37.0-47.0); Hemoglobin 12.3 g/dl (12.0-16.0); Imm Gran Abs Auto 0.01 X10*3/uL (0.00-0.03); Imm Gran Pct Auto 0.2 % (0.0-0.4); Lymphocytes Absolute Auto 1.3 X10*3/uL (1.2-4.9); Lymphocytes Percent Auto 26.7 % (20-40); Mean Corpuscular HGB Conc 32.3 g/dl (31.0-35.0); Mean Corpuscular Hemoglobin 29.1 pg (27.0-33.0); Mean Corpuscular Volume 90.3 fL (80.0-98.0); Mean Platelet Volume 9.4 fL (9.4-12.3); Monocytes Absolute Auto 0.5 X10*3/uL (0.1-1.2); Neutrophils Absolute Auto 2.6 x10*3/uL (2.0-8.3); Neutrophils Percent Auto 54.4 % (45-73); Platelet Count 336 X10*3/uL (160-400); Red Blood Count 4.22 X10*6/uL (4.20-5.50); Red Cell Distribution Width 15.6 % (11.0-16.0); White Blood Count 4.8 X10*3/uL (4.8-10.8)
[2024-10-05 11:22] LABS: Ferritin 20 ng/mL (10-250)
[2024-10-05 11:28] LABS: Vitamin B12 356 pg/mL (200-900)
== END 2024-10-05 08:36 | disposition home or self-care (01) ==
LOC: HO.HMGCLDS 08:35
PROVIDERS: PCP Internal Medicine; Visit Provider Internal Medicine
DX: E53.8 Deficiency of other specified B group vitamins (principal); D50.9 Iron deficiency anemia, unspecified
CPT/HCPCS: 36415; 82607; 82728; 85025

== ENCOUNTER 2024-10-12 10:29 | Outpatient (AMB) | payer BC, SELFPAY ==
[2024-10-12 10:30] VITALS: BP 138/80; PULSE 78; O2SAT 98; BMI 27.1
--- NOTE | 2024-10-12 10:30 | A.OFFPC_ITS ---
Vital Signs 10/12/24 10:30 Height 5 ft 3 in Weight 153 lb BMI 27.1 BP 138/80 Blood Pressure Location Rt brachial Position Sitting Pulse 78 Pulse Source Pulse Oximeter Pulse Oximetry (%) 98 Oxygen Delivery Method Room Air Intake Visit Reasons: Annual PE Allergies No Known Allergies Allergy (Verified 10/12/24 10:30) Medication List - Last Reconciled 10/12/24 by Anabell Beard MD albuterol sulfate 90 mcg/actuation 2 puffs PO Q8H PRN 30 days amlodipine 5 mg PO DAILY 90 days calcium carbonate (Tums) PO PRN cholecalciferol (vitamin D3) 25 mcg PO DAILY pravastatin 20 mg PO DAILY 90 days vitamin B complex (B Complex-Vitamin B12 tablet) 1 tab PO DAILY Tobacco use date assessed: 10/12/24 Fall risk assessment: No Falls in past year Last assessed Fall Risk: 10/12/24 Dental Screening Dental Screen Date: 10/12/24 Did you have a dental visit in the last 12 months?: No Did you have a dental problem in the last 6 months where you did not have access to dental care?: No Was dental information given to patient?: No HPI Annual PE HPI Details The patient is a 74-year-old female presenting for a routine physical examination and review of her laboratory results. She has a past medical history significant for anemia, essential hypertension, hyperlipidemia, and asthma. . She had previously been on Vitamin B12 but stopped due to elevated levels; currently, her B12 is 356, which is suboptimal. Her blood pressure is managed with Amlodipine 5 mg. Hyperlipidemia is controlled with statin and dietary modifications. Asthma is stable under treatment with ProAir inhaler. She also sustained a shoulder fracture in November, which was not confirmed by an X-ray and remains sore. The patient expressed fear and avoidance of undergoing colonoscopy due to concerns relating to her late 's medical history and consequent hospitalization events, which included falls and a complicated postoperative period leading to his passing. Social history - The patient lives alone, with her daug hter and her family residing next door. - Actively participates in social activi ties like shinto. - Engages in managing household financia l responsibilities. Last mammogram in April 2023. - CBC and metabolic profile noted: kidne y functions intact, LDL 112, liver enzym es normal. - Recent Vitamin B12 level is 356. - Avoidance of colonoscopy due to psycho logical distress related to past familial incidents. Plan - Anemia: Continue iron supplementation. Reassess Vitamin level in three months. - Essential Hypertension: Continue Amlod ipine 5 mg. - Hyperlipidemia: Continue statin 20 mg and maintain dietary control. - Asthma: Continue ProAir inhaler as pre scribed. - Health Maintenance: Follow up for labo ratory testing in three months specifically assessing kidney and liver functions, and levels. - Further evaluation of musculoskeletal complaints if shoulder soreness persists. REPLACED BY [facility] Medical History Elevated blood pressure reading Breast screening B12 deficiency Iron deficiency Asthma, moderate Chronic GERD Lipid disorder Surgical History History of tooth extraction Family History Father HTN (hypertension) Hyperlipidemia Mother HTN (hypertension) Diabetes mellitus Myocardial infarction Stroke Maternal Grandfather No problems noted. Maternal Grandmother Heart disease Paternal Grandmother Cerebral hemorrhage Paternal Grandfather No problems noted. Brother No problems noted. Sister No problems noted. Daughter No problems noted. Daughter No problems noted. Social History Housing: House Alcohol intake: never Patient Tobacco Use Status: Former Tobacco user e-Cigarette/Vaping Use: Never Used Second Hand Smoke Exposure: No service: No Current occupational status: retired Cognitive needs: No Hearing needs: No Vision needs: No Questionnaire PHQ-9 Over the last 2 weeks, how often have you been bothered by any of the following problems? 1. Little interest or pleasure in doing things: not at all 2. Feeling down, depressed, or hopeless: not at all 3. Trouble falling or staying asleep, or sleeping too much: not at all 4. Feeling tired or having little energy: not at all 5. Poor appetite or overeating: not at all 6. Feeling bad about yourself - or that you are a failure or have let yourself or your family down: not at all 7. Trouble concentrating on things, such as reading the newspaper or watching television: not at all 8. Moving or speaking so slowly that other people could have noticed. Or the opposite - being so fidgety or restless that you have been moving around a lot more than usual: not at all 9. Thoughts that you would be better off or of hurting yourself in some way: not at all Total score: 0 Depression Screening Interpretation: Negative Depression Screening Done: Yes 40366 - PHQ-9 Billing: Yes Source: Developed by Drs. Julio Cesar Martinez, Summer Donato, Jong Asif and colleagues, with an educational walter from [employer]. Thrive Questionnaire Date Thrive assessed: 10/12/24 I am a: Patient What is your living situation today?: I have a steady place to live Within the past 12 months, did the food you bought not last and you didn't have the money to get more?: Never true Within the past 12 months, did you worry whether your food would run out before you got money to buy more?: Never true Do you have trouble paying for medicines?: No Do you have trouble getting transportation to medical appointments?: No Do you have trouble paying your heating and electricity bill?: No Do you have trouble taking care of your child, family member or friend?: No Do you have trouble with day-to-day activities such as bathing, preparing meals, shopping, managing finances, etc.?: No Are you currently unemployed and looking for a job?: No Are you interested in more education?: No Please select the resources that you would like help with: None Currently or been in a relationship where the following occur: No concerns reported THRIVE Score: 0 AUDIT C Alcohol Use Questionnaire (AUDIT-C) 1. How often do you have a drink containing alcohol?: Never 3. How often do you have six or more drinks on one occasion?: Never Total Score: 0 Score Reviewed/Action Taken: Yes ZABRINA-7 AMB Questionnaire ZABRINA-7 Date ZABRINA - 7 assessed: 10/12/24 Feeling nervous, anxious, or on edge: 0 = Not at all Not being able to stop or control worryin = Not at all Worrying too much about different things: 0 = Not at all Trouble relaxin = Not at all Being so restless that it is hard to sit still: 0 = Not at all Becoming easily annoyed or irritable: 0 = Not at all Feeling afraid as if something awful might happen: 0 = Not at all Total ZABRINA-7 score (0-4 normal; 5-9 mild; 10-14 moderate; 15-21 severe): 0 Source: Developed by Drs. Julio Cesar Martinez, Summer Donato, Jong Asif and colleagues, with an educational walter from [employer]. ZABRINA-7 Assessment Billing ZABRINA-7 Assessment Tool: ZABRINA-7 Assessment 97755 Review of Systems Const Denies chills, Denies fever(s) and Denies headache(s) Eyes Denies blurry vision ENT Denies headache(s), Denies nasal discharge, Denies nasal obstruction, Denies odynophagia and Denies sinus pain Card Denies chest pain at rest and Denies chest pain with activity Resp Denies cough and Denies hemoptysis GI Denies diarrhea, Denies odynophagia, Denies vomiting and Denies hematemesis Reports as per HPI Musc Denies abnormal gait Skin/Breast Reports as per HPI Neuro Denies Neuro-related abnormal movements, Denies Abnormal speech present, Denies abnormal gait, Denies headache(s) and Denies Sensory deficit (Neuro) Psych Denies mood swings and Denies paranoia Endo Reports as per HPI Sammy/Lymph Reports as per HPI Aller/Immun Reports as per HPI Physical exam (Primary Care) Vital Signs: Last Vital Signs Pulse 78 10/12/24 10:30 BP 138/80 10/12/24 10:30 Pulse Ox 98 10/12/24 10:30 Oxygen Delivery Method Room Air 10/12/24 10:30 BMI result Body Mass Index 27.1 Tobacco/Smoking Status: Tobacco use Status Tobacco use date assessed 10/12/24 10/12/24 10:33 Patient Tobacco Use Status Former Tobacco user 10/12/24 10:33 e-Cigarette/Vaping Use Never Used 10/12/24 10:33 PHQ-9: PHQ-9 Score PHQ-9: Total score 0 10/12/24 12:06 Depression Screening Interpretation: Negative Thrive Assessment: Date of Thrive Assessment Date Thrive assessed 10/12/24 10/12/24 10:33 Currently or been in a relationship where the following occur: No concerns reported Const General: cooperative, comfortable and no acute distress Orientation/consciousness: patient oriented x3 HENMT Head: Yes normocephalic and Yes atraumatic Eyes General: appearance normal, both eyes and all related structures Pupils: Equal, round and reactive pupils present EOM: EOMs intact bilaterally Neck Neck: Yes supple and No lymphadenopathy Thyroid: Thyroid normal Lymphatic: no lymphadenopathy noted Resp Effort & Inspection: normal respiratory effort and able to speak in complete sentences Auscultation: clear to auscultation bilaterally Cardio Heart sounds: S1 normal heart sound present and S2 normal heart sound present GI Palpation (GI): Soft to palpation and nontender Auscultation: normal bowel sounds General: Yes no CVA tenderness Back/Spine/Pelvis Back: no CVA tenderness Skin General skin exam: elasticity normal and turgor normal Neuro General: patient oriented x3 and gait normal Cranial nerves: Yes Equal, round and reactive pupils present Speech: No Abnormal speech present Sensory Exam: No Sensory deficit (Neuro) Coordination: tandem gait normal and Romberg test negative Extrem General: Yes normal exam except as noted and No edema Coding Level of Care Code Est Pt Level 3 (78260) Est Pt Prev Care >65y(77870) Diagnoses Encounter for general adult medical examination with abnormal findings Z00.01 Hypertension, essential I10 Lipid disorder E78.9 Chronic GERD K21.9 Moderate asthma without complication, unspecified whether persistent J45.909 Asthma complication type: uncomplicated Asthma persistence: unspecified Iron deficiency E61.1 B12 deficiency E53.8 Colonoscopy refused Z53.20 Mild intermittent asthma without complication J45.20 Asthma complication type: uncomplicated Primary osteoarthritis of both hands M19.041; M19.042 Osteoarthritis type: primary Additional Codes ZABRINA-7 Assessment Billing - ZABRINA-7 Assessment Tool: ZABRINA-7 Assessment 30769 ([id number]) PHQ-9 - 78780 - PHQ-9 Billing: Yes ([id number]) Assessment & Plan Assessment & Plan (1) Encounter for general adult medical examination with abnormal findings: Code(s): Z00.01 - Encounter for general adult medical examination with abnormal findings Category: Medical (2) Hypertension, essential: Code(s): I10 - Essential (primary) hypertension Category: Medical (3) Lipid disorder: Code(s): E78.9 - Disorder of lipoprotein metabolism, unspecified Category: Medical (4) Chronic GERD: Code(s): K21.9 - Gastro-esophageal reflux disease without esophagitis Category: Medical (5) Asthma, moderate: Code(s): J45.909 - Unspecified asthma, uncomplicated Category: Medical Qualifiers: Asthma complication type: uncomplicated Asthma persistence: unspecified Qualified Code(s): J45.909 - Unspecified asthma, uncomplicated (6) Iron deficiency: Code(s): E61.1 - Iron deficiency Category: Medical (7) B12 deficiency: Code(s): E53.8 - Deficiency of other specified B group vitamins Category: Medical (8) Colonoscopy refused: Code(s): Z53.20 - Procedure and treatment not carried out because of patient's decision for unspecified reasons Category: Medical (9) Asthma, mild intermittent: Code(s): J45.20 - Mild intermittent asthma, uncomplicated Category: Medical Qualifiers: Asthma complication type: uncomplicated Qualified Code(s): J45.20 - Mild intermittent asthma, uncomplicated (10) Osteoarthritis of hands, bilateral: Code(s): M19.041 - Primary osteoarthritis, right hand; M19.042 - Primary osteoarthritis, left hand Category: Medical Qualifiers: Osteoarthritis type: primary Qualified Code(s): M19.041 - Primary osteoarthritis, right hand; M19.042 - Primary osteoarthritis, left hand Plan The patient is a 45-year-old female presenting for a wellness visit with requests to check glycated hemoglobin, calcium, and vitamin D levels. She has a history of hyperlipidemia, which she is carefully managing through increased physical activity and dietary changes, leaning towards vegetarianism. The patient describes her activity level as significantly increased, now engaging in outdoor activities such as gardening over the past two kat. Additionally, she discusses ongoing management of her anxiety disorder, which she believes stems from childhood. Symptoms previously included heart palpitations, nightmares, and avoidance of social situations, leading to an emergency room visit with severe anxiety. She is currently on Lexapro and reports significant improvement in her symptoms and quality of life over the past 10 years, with palpitations occurring rarely. - Gardening and increased outdoor activities, leading to weight loss. - Diet increasingly vegetarian. - Patient is up to date on OBGYN visits and mammograms. - OBGYN visit scheduled for end of the month. - Mammogram due November. - Lipid levels are being carefully managed. - Ordered lab tests for glycated hemoglobin, calcium, and vitamin D levels. Patient is instructions Follow the current dietary adjustments leaning towards vegetarianism. - Continue regular outdoor physical activities. - Complete fasting lab tests for glycated hemoglobin, calcium, and vitamin D. - Return to discuss lab results and medication side effects in six months, an appointment can be telephonic. - Maintain regular follow-ups with the OBGYN and schedule mammogram for November. - Continue current medication regimen as it effectively manages anxiety symptoms. Discussion We discussed the importance of continuing Lexapro for anxiety management, and the patient expressed satisfaction with the current improvements in her mental health. I assured her that using medication to improve quality of life is appropriate, emphasizing that managing anxiety is vital for overall health. There was an open discussion about her new prescription for reading glasses, with reassurance that this is common after the age of 40. Additionally, we talked about her unintentional weight loss due to increased outdoor activity and diet changes, concluding that this is positive if she feels well. Ordered lab tests for glycated hemoglobin, calcium, and vitamin D were discussed, and the patient consented to complete these while fasting. Lastly, we decided on a follow-up in six months to monitor the side effects of her medication, with an option for a telephonic appointment. Orders: Orders Comprehensive Met. Panel Today E78.9 - Disorder of lipoprotein metabolism, unspecified Complete Blood Count Auto Diff 3 Months E53.8 - Deficiency of other specified B group vitamins, E61.1 - Iron deficiency, E78.9 - Disorder of lipoprotein metabolism, unspecified, I10 - Essential (primary) hypertension, J45.20 - Mild intermittent asthma, uncomplicated, J45.909 - Unspecified asthma, uncomplicated, K21.9 - Gastro-esophageal reflux disease without esophagitis, M19.041 - Primary osteoarthritis, right hand, M19.042 - Primary osteoarthritis, left hand, Z00.01 - Encounter for general adult medical examination with abnormal findings Vitamin B12 3 Months E53.8 - Deficiency of other specified B group vitamins, E61.1 - Iron deficiency, E78.9 - Disorder of lipoprotein metabolism, unspecified, I10 - Essential (primary) hypertension, J45.20 - Mild intermittent asthma, uncomplicated, J45.909 - Unspecified asthma, uncomplicated, K21.9 - Gastro-esophageal reflux disease without esophagitis, M19.041 - Primary osteoarthritis, right hand, M19.042 - Primary osteoarthritis, left hand, Z00.01 - Encounter for general adult medical examination with abnormal findings LDL Cholesterol Direct 3 Months E53.8 - Deficiency of other specified B group vitamins, E61.1 - Iron deficiency, E78.9 - Disorder of lipoprotein metabolism, unspecified, I10 - Essential (primary) hypertension, J45.20 - Mild intermittent asthma, uncomplicated, J45.909 - Unspecified asthma, uncomplicated, K21.9 - Gastro-esophageal reflux disease without esophagitis, M19.041 - Primary osteoarthritis, right hand, M19.042 - Primary osteoarthritis, left hand, Z00.01 - Encounter for general adult medical examination with abnormal findings Ferritin 3 Months E53.8 - Deficiency of other specified B group vitamins, E61.1 - Iron deficiency, E78.9 - Disorder of lipoprotein metabolism, unspecified, I10 - Essential (primary) hypertension, J45.20 - Mild intermittent asthma, uncomplicated, J45.909 - Unspecified asthma, uncomplicated, K21.9 - Gastro- esophageal reflux disease without esophagitis, M19.041 - Primary osteoarthritis, right hand, M19.042 - Primary osteoarthritis, left hand, Z00.01 - Encounter for general adult medical examination with abnormal findings
== END 2024-10-12 10:53 | disposition home or self-care (01) ==
PROVIDERS: PCP Psychiatry & Neurology Neurology; Visit Provider Internal Medicine
DX: Z00.00 Encounter for general adult medical examination without abnormal findings (principal); I10 Essential (primary) hypertension; E78.9 Disorder of lipoprotein metabolism, unspecified; K21.9 Gastro-esophageal reflux disease without esophagitis; J45.909 Unspecified asthma, uncomplicated; E61.1 Iron deficiency; E53.8 Deficiency of other specified B group vitamins; Z53.20 Procedure and treatment not carried out because of patient's decision for unspecified reasons; J45.20 Mild intermittent asthma, uncomplicated; M19.041 Primary osteoarthritis, right hand; M19.042 Primary osteoarthritis, left hand

== ENCOUNTER → 2024-10-12 10:29 | Outpatient (BNVA) | payer BC, SELFPAY | PROVIDERS: PCP Psychiatry & Neurology Neurology; Visit Provider Internal Medicine | DX: Z00.01 Encounter for general adult medical examination with abnormal findings (principal); I10 Essential (primary) hypertension; E78.9 Disorder of lipoprotein metabolism, unspecified; K21.9 Gastro-esophageal reflux disease without esophagitis; E61.1 Iron deficiency; E53.8 Deficiency of other specified B group vitamins; J45.20 Mild intermittent asthma, uncomplicated; M19.041 Primary osteoarthritis, right hand; M19.042 Primary osteoarthritis, left hand | CPT/HCPCS: 96127 ==

== ENCOUNTER 2025-04-10 11:00 | Outpatient (REF) | payer BC, SELFPAY ==
--- OUTSIDE RECORDS SUMMARY | 2025-04-10 11:47 | XMS_ITS | Clinical Summary ---
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 Role Phone Unavailable Primary Care Provider Unavailabl e Social History Tobacco Use Types Packs/Day Years Used Date Smoking Tobacco: Never Assessed Comments Unknown Sex and Gender Information Value Date Recorded Sex Assigned at Not on file Legal Sex Female 8:34 PM EST Gender Identity Not on file Sexual Orientation Not on file Plan of Treatment Health Maintenance Due Date Last Done Comments DTaP,Tdap,and Td Vaccines (1 - Tdap) 1967 Pneumococcal Vaccine: 50+ Ye ars (1 of 1 - PCV) 1998 Zoster Vaccines (1 of 2) 1998 RSV Immunization Adult Patie nts (1 - 1-dose 75+ series) 2023 Depression Screening 12/18/2023 Falls Risk Assessment 12/18/2023 Hepatitis C Screening 12/18/2023 Osteoporosis Screening (Bone Density Screening) 12/18/2023 Social Influencers of Health Screening 12/18/2023 COVID-19 Vaccine ( - 2023-2 5 season) 2024 Influenza Vaccine (Season Ended) 2025 HIB Vaccines Aged Out No longer eligi ble based on patient's age to complete this topic HPV Vaccines Aged Out No longer eligi ble based on patient's age to complete this topic Hepatitis A Vaccines Aged Out No long er eligible based on patient's age to complete this topic Hepatitis B Vaccines Aged Out No long er eligible based on patient's age to complete this topic IPV Vaccines Aged Out No longer eligi ble based on patient's age to complete this topic MMR Vaccines Aged Out No longer eligi ble based on patient's age to complete this topic Meningococcal ACWY Vaccine Aged Out N o longer eligible based on patient's age to complete this topic Meningococcal B Vaccine Aged Out No l onger eligible based on patient's age to complete this topic RSV Immunization Patients Un yahir 20 months Aged Out No longer eligible b ased on patient's age to complete this topic Varicella Vaccines Aged Out No longer eligible based on patient's age to complete this topic
[2025-04-10 13:01] LABS: MANUAL DIFF FLAG NO
[2025-04-10 13:20] LABS: Basophils Percent Auto 0.9 % (0-2); Eosinophils Absolute Auto 0.2 X10*3/uL (0.0-0.4); Eosinophils Percent Auto 4.4 % (0-4); Hematocrit 35.5 % (37.0-47.0); Hemoglobin 11.5 g/dl (12.0-16.0); Imm Gran Abs Auto 0.02 X10*3/uL (0.00-0.03); Imm Gran Pct Auto 0.4 % (0.0-0.4); Lymphocytes Absolute Auto 1.3 X10*3/uL (1.2-4.9); Lymphocytes Percent Auto 27.7 % (20-40); Mean Corpuscular HGB Conc 32.4 g/dl (31.0-35.0); Mean Corpuscular Hemoglobin 28.3 pg (27.0-33.0); Mean Corpuscular Volume 87.2 fL (80.0-98.0); Mean Platelet Volume 9.4 fL (9.4-12.3); Monocytes Absolute Auto 0.5 X10*3/uL (0.1-1.2); Monocytes Percent Auto 10.8 % (2-11); Neutrophils Absolute Auto 2.5 x10*3/uL (2.0-8.3); Neutrophils Percent Auto 55.8 % (45-73); Platelet Count 339 X10*3/uL (160-400); Red Blood Count 4.07 X10*6/uL (4.20-5.50); Red Cell Distribution Width 14.9 % (11.0-16.0); White Blood Count 4.5 X10*3/uL (4.8-10.8)
[2025-04-10 13:52] LABS: Ferritin 12 ng/mL (10-250)
[2025-04-10 13:54] LABS: Vitamin B12 619 pg/mL (200-900)
[2025-04-11 16:38] LABS: LDL Cholesterol Direct 117 mg/dL (<100)
== END 2025-04-10 11:01 | disposition home or self-care (01) ==
LOC: HO.HMGCLDS 11:00
PROVIDERS: PCP Internal Medicine; Visit Provider Internal Medicine
DX: Z00.01 Encounter for general adult medical examination with abnormal findings (principal); E78.9 Disorder of lipoprotein metabolism, unspecified; K21.9 Gastro-esophageal reflux disease without esophagitis; J45.909 Unspecified asthma, uncomplicated; E61.1 Iron deficiency; E53.8 Deficiency of other specified B group vitamins; I10 Essential (primary) hypertension; J45.20 Mild intermittent asthma, uncomplicated; M19.041 Primary osteoarthritis, right hand; M19.042 Primary osteoarthritis, left hand
CPT/HCPCS: 36415; 82607; 82728; 83721; 85025

== ENCOUNTER 2025-04-12 09:30 | Outpatient (AMB) | payer BC, SELFPAY ==
--- NOTE | 2025-04-12 09:34 | MHC.PC.OV ---
Vital Signs 04/12/25 09:35 Height 5 ft 3 in Weight 153 lb BMI 27.1 BP 120/78 Blood Pressure Location Lt brachial Position Sitting Pulse 75 Pulse Source Pulse Oximeter Pulse Oximetry (%) 96 Oxygen Delivery Method Room Air Intake Visit Reasons: 6 months follow up Stage Producer Required: No Accompanied by: Self / Same As Patient Allergies No Known Allergies Allergy (Verified 04/12/25 09:36) Medication List - Last Reconciled 04/12/25 by Anabell Beard MD albuterol sulfate 90 mcg/actuation 2 puffs PO Q8H PRN 30 days amlodipine 5 mg PO DAILY 90 days calcium carbonate (Tums) PO PRN cholecalciferol (vitamin D3) 25 mcg PO DAILY pravastatin 20 mg PO DAILY 90 days vitamin B complex (B Complex-Vitamin B12 tablet) 1 tab PO DAILY Tobacco use date assessed: 04/12/25 Fall risk assessment: 2 + Falls in past year Last assessed Fall Risk: 04/12/25 Dental Screening Dental Screen Date: 04/12/25 Did you have a dental visit in the last 12 months?: Yes Did you have a dental problem in the last 6 months where you did not have access to dental care?: No Was dental information given to patient?: Patient has dentist HPI 6 months follow up HPI Details History - The patient is a 75-year-old female presenting for a regular follow-up appointment. - Essential Hypertension: The patient continues on amlodipine 5 mg, with blood pressure well-managed and reported as wonderful. - Iron Deficiency Anemia: Previously identified with fluctuating low hemoglobin levels, currently addressed with iron supplementation. The patient sometimes feels weak and takes iron more frequently during those periods. - Hyperlipidemia: Patient reports taking pravastatin 20 mg with LDL cholesterol measured at 117. - Overweight: Discussed BMI of 27.1, with a note on slight overweight status. - The patient has experienced recent bereavement, noting that her last year, leading to decreased physical activity and increased periods of depression. - The patient's B12 level was 619, a return to normal with prior supplementation. Patient continues to take vitamin B12 twice weekly. Problem List - Overweight - Iron Deficiency Anemia - Hyperlipidemia - Essential Hypertension Patient Instructions - Continue taking prescribed medications as directed. - Take iron supplementation twice a week with vitamin C-rich foods for better absorption. - Engage in physical activities, such as strength training classes at the [facility], to improve leg strength. - Use the inhaler as needed, particularly in humid conditions. - Attend next medical appointment on October 27 at 10:00 AM and have lab work done one day before this appointment. Review of Systems - General: No fever no chills - Neurological: No headaches no dizziness - Ear nose throat: No sore throat no hearing difficulty no ear pain - Cardiovascular: No syncope, no chest pain, no palpitations - Gastrointestinal: No nausea vomiting or diarrhea - Endocrine: No polyuria polydipsia no heat intolerance - Genitourinary: No dysuria , no blood in urine Physical Exam - General: No acute distress - HEENT: No acute findings - Neck: Supple - Respiratory system: Able to talk in full sentences, no audible wheeze - Cardiovascular: S1-S2 regular in rate and rhythm - Gastrointestinal: No pain - Extremities: No new findings - DESIGN 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 Maternal Grandmother Heart disease Paternal Grandmother Cerebral hemorrhage Paternal Grandfather No problems noted. Brother No problems noted. Sister No problems noted. Daughter No problems noted. Daughter No problems noted. Social History Housing: House Alcohol intake: never Patient Tobacco Use Status: Former Tobacco user e-Cigarette/Vaping Use: Never Used Second Hand Smoke Exposure: No service: No Current occupational status: retired Cognitive needs: No Hearing needs: No Vision needs: No Questionnaire PHQ-9 Over the last 2 weeks, how often have you been bothered by any of the following problems? 1. Little interest or pleasure in doing things: not at all 2. Feeling down, depressed, or hopeless: not at all 3. Trouble falling or staying asleep, or sleeping too much: not at all 4. Feeling tired or having little energy: not at all 5. Poor appetite or overeating: not at all 6. Feeling bad about yourself - or that you are a failure or have let yourself or your family down: not at all 7. Trouble concentrating on things, such as reading the newspaper or watching television: not at all 8. Moving or speaking so slowly that other people could have noticed. Or the opposite - being so fidgety or restless that you have been moving around a lot more than usual: not at all 9. Thoughts that you would be better off or of hurting yourself in some way: not at all Total score: 0 Depression Screening Interpretation: Negative Depression Screening Done: Yes 00375 - PHQ-9 Billing: Yes Source: Developed by Drs. Julio Cesar Martinez, Summer Donato, Jong Asif and colleagues, with an educational walter from [employer]. Thrive Questionnaire Date Thrive assessed: 04/12/25 I am a: Patient What is your living situation today?: I have a steady place to live Within the past 12 months, did the food you bought not last and you didn't have the money to get more?: Never true Within the past 12 months, did you worry whether your food would run out before you got money to buy more?: Never true Do you have trouble paying for medicines?: No Do you have trouble getting transportation to medical appointments?: No Do you have trouble paying your heating and electricity bill?: No Do you have trouble taking care of your child, family member or friend?: No Do you have trouble with day-to-day activities such as bathing, preparing meals, shopping, managing finances, etc.?: No Are you currently unemployed and looking for a job?: No Are you interested in more education?: No Please select the resources that you would like help with: None Currently or been in a relationship where the following occur: I choose not to answer THRIVE Score: 0 AUDIT C Alcohol Use Questionnaire (AUDIT-C) 1. How often do you have a drink containing alcohol?: Monthly or less 2. How many drinks containing alcohol do you have on a typical day when you are drinking?: 1 or 2 3. How often do you have six or more drinks on one occasion?: Never Total Score: 1 Score Reviewed/Action Taken: Yes ZABRINA-7 AMB Questionnaire ZABRINA-7 Date ZABRINA - 7 assessed: 04/12/25 Feeling nervous, anxious, or on edge: 0 = Not at all Not being able to stop or control worryin = Not at all Worrying too much about different things: 0 = Not at all Trouble relaxin = Not at all Being so restless that it is hard to sit still: 0 = Not at all Becoming easily annoyed or irritable: 0 = Not at all Feeling afraid as if something awful might happen: 0 = Not at all Total ZABRINA-7 score (0-4 normal; 5-9 mild; 10-14 moderate; 15-21 severe): 0 Source: Developed by Drs. Julio Cesar Martinez, Summer Donato, Jong Asif and colleagues, with an educational walter from [employer]. ZABRINA-7 Assessment Billing ZABRINA-7 Assessment Tool: ZABRINA-7 Assessment 22064 Physical exam (Primary Care) Vital Signs: Last Vital Signs Pulse 75 04/12/25 09:35 BP 120/78 04/12/25 09:35 Pulse Ox 96 04/12/25 09:35 Oxygen Delivery Method Room Air 04/12/25 09:35 BMI result Body Mass Index 27.1 Tobacco/Smoking Status: Tobacco use Status Tobacco use date assessed 04/12/25 04/12/25 09:38 Patient Tobacco Use Status Former Tobacco user 04/12/25 09:35 e-Cigarette/Vaping Use Never Used 04/12/25 09:35 PHQ-9: PHQ-9 Score PHQ-9: Total score 0 04/12/25 09:38 Depression Screening Interpretation: Negative Thrive Assessment: Date of Thrive Assessment Date Thrive assessed 04/12/25 04/12/25 09:38 Currently or been in a relationship where the following occur: I choose not to answer Coding Level of Care Code Est Pt Level 4 (13971) Diagnoses Hypertension, essential I10 Lipid disorder E78.9 Chronic GERD K21.9 Iron deficiency E61.1 B12 deficiency E53.8 Iron deficiency anemia, unspecified iron deficiency anemia type D50.9 Anemia type: iron deficiency Iron deficiency anemia type: unspecified iron deficiency Mild intermittent asthma without complication J45.20 Asthma complication type: uncomplicated Additional Codes ZABRINA-7 Assessment Billing - ZABRINA-7 Assessment Tool: ZABRINA-7 Assessment 05279 ([id number]) PHQ-9 - 39863 - PHQ-9 Billing: Yes ([id number]) Assessment & Plan Assessment & Plan (1) Hypertension, essential: Code(s): I10 - Essential (primary) hypertension Category: Medical (2) Lipid disorder: Code(s): E78.9 - Disorder of lipoprotein metabolism, unspecified Category: Medical (3) Chronic GERD: Code(s): K21.9 - Gastro-esophageal reflux disease without esophagitis Category: Medical (4) Iron deficiency: Code(s): E61.1 - Iron deficiency Category: Medical (5) B12 deficiency: Code(s): E53.8 - Deficiency of other specified B group vitamins Category: Medical (6) Anemia: Code(s): D64.9 - Anemia, unspecified Category: Medical Qualifiers: Anemia type: iron deficiency Iron deficiency anemia type: unspecified iron deficiency Qualified Code(s): D50.9 - Iron deficiency anemia, unspecified (7) Asthma, mild intermittent: Code(s): J45.20 - Mild intermittent asthma, uncomplicated Category: Medical Qualifiers: Asthma complication type: uncomplicated Qualified Code(s): J45.20 - Mild intermittent asthma, uncomplicated Plan History - The patient is a 75-year-old female presenting for a regular follow-up appointment. - Essential Hypertension: The patient continues on amlodipine 5 mg, with blood pressure well-managed and reported as wonderful. - Iron Deficiency Anemia: Previously identified with fluctuating low hemoglobin levels, currently addressed with iron supplementation. The patient sometimes feels weak and takes iron more frequently during those periods. - Hyperlipidemia: Patient reports taking pravastatin 20 mg with LDL cholesterol measured at 117. - Overweight: Discussed BMI of 27.1, with a note on slight overweight status. - The patient has experienced recent bereavement, noting that her last year, leading to decreased physical activity and increased periods of depression. - The patient's B12 level was 619, a return to normal with prior supplementation. Patient continues to take vitamin B12 twice weekly. Problem List - Overweight - Iron Deficiency Anemia - Hyperlipidemia - Essential Hypertension Patient Instructions - Continue taking prescribed medications as directed. - Take iron supplementation twice a week with vitamin C-rich foods for better absorption. - Engage in physical activities, such as strength training classes at the [facility], to improve leg strength. - Use the inhaler as needed, particularly in humid conditions. - Attend next medical appointment on October 27 at 10:00 AM and have lab work done one day before this appointment. Orders: Orders Complete Blood Count Auto Diff 6 Months D50.9 - Iron deficiency anemia, unspecified, E53.8 - Deficiency of other specified B group vitamins, E61.1 - Iron deficiency, E78.9 - Disorder of lipoprotein metabolism, unspecified, J45.20 - Mild intermittent asthma, uncomplicated, K21.9 - Gastro-esophageal reflux disease without esophagitis Comprehensive [place]. Panel Fast 6 Months D50.9 - Iron deficiency anemia, unspecified, E53.8 - Deficiency of other specified B group vitamins, E61.1 - Iron deficiency, E78.9 - Disorder of lipoprotein metabolism, unspecified, J45.20 - Mild intermittent asthma, uncomplicated, K21.9 - Gastro-esophageal reflux disease without esophagitis Lipid Panel 6 Months D50.9 - Iron deficiency anemia, unspecified, E53.8 - Deficiency of other specified B group vitamins, E61.1 - Iron deficiency, E78.9 - Disorder of lipoprotein metabolism, unspecified, J45.20 - Mild intermittent asthma, uncomplicated, K21.9 - Gastro-esophageal reflux disease without esophagitis Vitamin B12 6 Months D50.9 - Iron deficiency anemia, unspecified, E53.8 - Deficiency of other specified B group vitamins, E61.1 - Iron deficiency, E78.9 - Disorder of lipoprotein metabolism, unspecified, J45.20 - Mild intermittent asthma, uncomplicated, K21.9 - Gastro-esophageal reflux disease without esophagitis Vitamin D 25-OH (D2 and D3) 6 Months D50.9 - Iron deficiency anemia, unspecified, E53.8 - Deficiency of other specified B group vitamins, E61.1 - Iron deficiency, E78.9 - Disorder of lipoprotein metabolism, unspecified, J45.20 - Mild intermittent asthma, uncomplicated, K21.9 - Gastro-esophageal reflux disease without esophagitis Ferritin 6 Months D50.9 - Iron deficiency anemia, unspecified, E53.8 - Deficiency of other specified B group vitamins, E61.1 - Iron deficiency, E78.9 - Disorder of lipoprotein metabolism, unspecified, J45.20 - Mild intermittent asthma, uncomplicated, K21.9 - Gastro-esophageal reflux disease without esophagitis
[2025-04-12 09:35] VITALS: BP 120/78; PULSE 75; O2SAT 96; BMI 27.1
--- OUTSIDE RECORDS SUMMARY | 2025-04-12 10:47 | XMS_ITS | Clinical Summary ---
Author Organization [facility] Address [id number] [place] [id number] Care Team Providers Care Lawn Care Professional Name Role Phone Unavailable Primary Care Provider [...]
== END 2025-04-12 10:12 | disposition home or self-care (01) ==
LOC: HO.HMCC 09:31
PROVIDERS: PCP Psychiatry & Neurology Neurology; Visit Provider Internal Medicine
DX: I10 Essential (primary) hypertension (principal); K21.9 Gastro-esophageal reflux disease without esophagitis; D50.9 Iron deficiency anemia, unspecified; J45.20 Mild intermittent asthma, uncomplicated

== ENCOUNTER → 2025-04-12 09:30 | Outpatient (BNVA) | payer BC, SELFPAY | PROVIDERS: PCP Psychiatry & Neurology Neurology; Visit Provider Internal Medicine | DX: I10 Essential (primary) hypertension (principal); D50.9 Iron deficiency anemia, unspecified; E78.5 Hyperlipidemia, unspecified; E66.3 Overweight; E78.9 Disorder of lipoprotein metabolism, unspecified; K21.9 Gastro-esophageal reflux disease without esophagitis; E53.8 Deficiency of other specified B group vitamins; Z68.27 Body mass index [BMI] 27.0-27.9, adult; J45.20 Mild intermittent asthma, uncomplicated | CPT/HCPCS: 96127 ==

== ENCOUNTER 2025-10-20 10:33 | Outpatient (REF) | payer BC, SELFPAY ==
--- OUTSIDE RECORDS SUMMARY | 2025-10-20 10:37 | XMS_ITS | Clinical Summary ---
Author Organization [facility] Address [address] [place] [address] Care Team Providers Care Metal Furniture Repairer Name Role Phone Unavailable Primary Care Provider [...] nts (1 - 1-dose 75+ series) 2023 Falls Risk Assessment 12/18/2023 Hepatitis C Screening 12/18/2023 Osteoporosis Screening (Bone Density Screening) 12/18/2023 Social Influencers of Health Screening 12/18/2023 Depression Screening 11/23/2024 COVID-19 Vaccine ( - 2024-2 6 season) 2025 Influenza Vaccine (#1) 2025 HIB Vaccines Aged Out No longer [...]
[2025-10-20 12:38] LABS: MANUAL DIFF FLAG NO
[2025-10-20 12:47] LABS: Hematocrit 37.4 % (37.0-47.0); Hemoglobin 11.7 g/dl (12.0-16.0); Imm Gran Abs Auto 0.00 X10*3/uL (0.00-0.03); Imm Gran Pct Auto 0.0 % (0.0-0.4); Lymphocytes Absolute Auto 1.1 X10*3/uL (1.2-4.9); Mean Corpuscular HGB Conc 31.3 g/dl (31.0-35.0); Mean Corpuscular Hemoglobin 27.3 pg (27.0-33.0); Mean Corpuscular Volume 87.4 fL (80.0-98.0); NRBC Abs Auto 0.000 X10*3/uL (0.0-0.012); NRBC Pct Auto 0.0 /100WBC (0.0-0.2); Platelet Count 360 X10*3/uL (160-400); Red Blood Count 4.28 X10*6/uL (4.20-5.50); White Blood Count 4.6 X10*3/uL (4.8-10.8)
[2025-10-20 13:14] LABS: Alanine Aminotransferase 16 U/L (0-31); Albumin Level 4.3 g/dL (3.5-5.0); Alkaline Phosphatase 72 U/L (39-117); Anion Gap 11 (12-20); Aspartate Amino Transferase 27 U/L (5-31); Blood Urea Nitrogen 16 mg/dL (9-16); Calcium 9.4 mg/dL (8.4-10.2); Carbon Dioxide 27 mmol/L (22-29); Chloride 106 mmol/L (96-108); Cholesterol 241 mg/dL (<200); Estimated Glomerular Filt Rate > 60; HDL Cholesterol 60 mg/dL (>40); Potassium 3.6 mmol/L (3.3-5.1); Sodium 140 mmol/L (135-145); Total Protein 6.9 g/dL (6.5-8.0); Triglycerides 221 mg/dL (<150)
[2025-10-20 13:31] LABS: Ferritin 13 ng/mL (10-250)
[2025-10-20 13:37] LABS: Vitamin B12 477 pg/mL (200-900)
[2025-10-26 08:33] LABS: Vitamin D 25-OH, D2 <4 ng/mL; Vitamin D 25-OH, D3 26 ng/mL; Vitamin D 25-OH, Total 26 ng/mL (30-100)
== END 2025-10-20 10:34 | disposition home or self-care (01) ==
LOC: HO.HMGCLDS 10:33
PROVIDERS: PCP Internal Medicine; Visit Provider Internal Medicine
DX: K21.9 Gastro-esophageal reflux disease without esophagitis (principal); E53.8 Deficiency of other specified B group vitamins; J45.20 Mild intermittent asthma, uncomplicated; E78.9 Disorder of lipoprotein metabolism, unspecified; D50.9 Iron deficiency anemia, unspecified; Z13.21 Encounter for screening for nutritional disorder
CPT/HCPCS: 36415; 80053; 80061; 82306; 82607; 82728; 85025

== ENCOUNTER 2025-11-15 11:21 | Outpatient (AMB) | payer BC, SELFPAY ==
[2025-11-15 11:23] VITALS: BP 138/80; PULSE 79; O2SAT 95; BMI 27.5
--- NOTE | 2025-11-15 11:23 | A.OFFPC_ITS ---
Vital Signs 11/15/25 11:23 Height 5 ft 3 in Weight 155 lb BMI 27.5 BP 138/80 Blood Pressure Location Lt brachial Position Sitting Pulse 79 Pulse Source Pulse Oximeter Pulse Oximetry (%) 95 Intake Visit Reasons: annual PE Allergies No Known Allergies Allergy (Verified 11/15/25 11:23) Medication List - Last Reconciled 11/15/25 by Anabell Beard MD albuterol sulfate 90 mcg/actuation 2 puffs PO Q8H PRN 30 days amlodipine 5 mg PO DAILY 90 days calcium carbonate (Tums) PO PRN cholecalciferol (vitamin D3) 25 mcg PO DAILY pravastatin 20 mg PO DAILY 90 days vitamin B complex (B Complex-Vitamin B12 tablet) 1 tab PO DAILY Tobacco use date assessed: 04/12/25 Fall risk assessment: No Falls in past year Last assessed Fall Risk: 11/15/25 Dental Screening Dental Screen Date: 04/12/25 HPI HPI Comments History of Present Illness Details History of Present Illness The patient is a 75 year old female presenting for a physical examination. Hypertension: - The patient has hypertension, managed with amlodipine 5 mg. - Her blood pressure at the visit was 13 8/80 mmHg. Hyperlipidemia: - The patient is prescribed pravastatin 20 mg for hyperlipidemia. - Her LDL cholesterol was 137 mg/dL in [facility], an increase from 117 mg/dL earlier in the year. - She reports reducing her statin intake due to experiencing nocturnal leg cramps, which she believes are a side effect. Vitamin D Deficiency: - Lab work from September revealed low vi tamin D levels. - The patient was advised to start vitam in D supplementation. Anemia: - The patient has a history of anemia an d used to be on iron supplements. - Her hemoglobin was 11.7 g/dL in [facility] er, and she reports that her levels fluctuate between 10 and 12 g/dL. Intermittent Asthma: - The patient has intermittent asthma an d uses a ProAir inhaler as needed for shortness of breath. Chronic Obstructive Pulmonary Disease with history of tobacco use: - Lung auscultation suggests chronic obs tructive pulmonary disease. - She has a history of smoking for about 20 years, less than a pack per day, and quit at age 37. Osteoarthritis: - The patient reports severe osteoarthri tis in her fingers, which she attributes to life-long use of her hands, including playing the piano. Medical History: - Hypertension - Hyperlipidemia - Intermittent asthma - Osteoarthritis - Vitamin D deficiency - Anemia, with fluctuating hemoglobin le vels Social History: - Tobacco use: Former smoker, she quit a t age 37 after smoking for 20 years, consuming less than one pack per day. - Exercise: Performs a 30-minute televis ion exercise program every night. - Diet: Drinks chamomile tea at night to aid sleep. - Stressors: Recently in May of this year and expressed significant distress regarding the circumstances of her 's and the medical care he received. Health Maintenance - The patient follows up every 6 months. - Mammogram: Completed in July t his year. - Bone density scan: Recommended for ost eoporosis screening; the patient deferred to next year and will check insurance coverage. - Colonoscopy: Declined. - Pap smear: Declined. - Vaccinations: Declined influenza and p neumonia vaccines. - Amlodipine 5 mg for hypertension. - Pravastatin 20 mg for hyperlipidemia; patient reports inconsistent use due to side effects. - ProAir inhaler as needed for intermitt ent asthma. 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 [facility] Medical History Elevated blood pressure reading Breast screening B12 deficiency Iron deficiency Asthma, moderate Chronic GERD Lipid disorder Surgical History History of tooth extraction Family History Father HTN (hypertension) Hyperlipidemia Mother HTN (hypertension) Diabetes mellitus Myocardial infarction Stroke Maternal Grandfather No problems noted. Maternal Grandmother Heart disease Paternal Grandmother Cerebral hemorrhage Paternal Grandfather No problems noted. Brother No problems noted. Sister No problems noted. Daughter No problems noted. Daughter No problems noted. Social History Housing: House Alcohol intake: never Patient Tobacco Use Status: Former Tobacco user e-Cigarette/Vaping Use: Never Used Second Hand Smoke Exposure: No service: No Current occupational status: retired Cognitive needs: No Hearing needs: No Vision needs: No Questionnaire Thrive Questionnaire Date Thrive assessed: 04/12/25 What is your living situation today?: I have a steady place to live Within the past 12 months, did the food you bought not last and you didn't have the money to get more?: Never true Within the past 12 months, did you worry whether your food would run out before you got money to buy more?: Never true Do you have trouble paying for medicines?: No Do you have trouble getting transportation to medical appointments?: No Do you have trouble paying your heating and electricity bill?: No Do you have trouble taking care of your child, family member or friend?: No Do you have trouble with day-to-day activities such as bathing, preparing meals, shopping, managing finances, etc.?: No Are you currently unemployed and looking for a job?: No Are you interested in more education?: No Currently or been in a relationship where the following occur: I choose not to answer THRIVE Score: 0 ZABRINA-7 AMB Questionnaire ZABRINA-7 Date ZABRINA - 7 assessed: 04/12/25 Source: Developed by Drs. Julio Cesar Martinez, Summer Donato, Jong Asif and colleagues, with an educational walter from [employer]. Review of Systems Narrative Review of Systems - General: No fever no chills - Neurological: No headaches no dizziness - Ear nose throat: No sore throat no hearing difficulty no ear pain - Cardiovascular: No syncope, no chest pain, no palpitations - Gastrointestinal: No nausea vomiting or diarrhea - Endocrine: No polyuria polydipsia no heat intolerance - Genitourinary: No dysuria - Skin: No new complaints Physical exam (Primary Care) Vital Signs: Last Vital Signs Pulse 79 11/15/25 11:23 BP 138/80 11/15/25 11:23 Pulse Ox 95 11/15/25 11:23 BMI result Body Mass Index 27.5 Tobacco/Smoking Status: Tobacco use Status Tobacco use date assessed 04/12/25 11/15/25 11:24 Patient Tobacco Use Status Former Tobacco user 11/15/25 11:24 e-Cigarette/Vaping Use Never Used 11/15/25 11:24 Thrive Assessment: Date of Thrive Assessment Date Thrive assessed 04/12/25 11/15/25 11:24 Currently or been in a relationship where the following occur: I choose not to answer Narrative Diagnostic results Physical Exam General: Cooperative, healthy appearing, comfortable, no acute distress Orientation: Patient oriented x3 Head: Normal to inspection Ears: Within normal limit visually Nose: Normal external nose present Face and sinus: Normal facial exam Eyes: Appearance normal, extraocular movement intact pupils reactive Neck: Normal visual inspection and supple Respiratory: Normal respiratory effort and able to speak in complete sentences. Clear to auscultation, no stridor Cardiovascular: S1 and S2 RRR Breast exam declined GI: Normal to inspection. Soft to palpation and nontender Skin: Turgor normal, no acute findings Neuro: Patient oriented x3, motor sensory intact, balance intact, tandem pass Extremities: Normal to inspection . Coding Level of Care Code Est Pt Level 3 (20970) Est Pt Prev Care >65y(60030) Diagnoses Encounter for general adult medical examination with abnormal findings Z00.01 Hypertension, essential I10 Lipid disorder E78.9 B12 deficiency E53.8 Ex-smoker Z87.891 Iron deficiency E61.1 Iron deficiency anemia, unspecified iron deficiency anemia type D50.9 Anemia type: iron deficiency Iron deficiency anemia type: unspecified iron deficiency Pneumococcal vaccination declined Z Flu vaccine refused Z Assessment & Plan Assessment & Plan (1) Encounter for general adult medical examination with abnormal findings: Code(s): Z00.01 - Encounter for general adult medical examination with abnormal findings Category: Medical (2) Hypertension, essential: Code(s): I10 - Essential (primary) hypertension Category: Medical (3) Lipid disorder: Code(s): E78.9 - Disorder of lipoprotein metabolism, unspecified Category: Medical (4) B12 deficiency: Code(s): E53.8 - Deficiency of other specified B group vitamins Category: Medical (5) Ex-smoker: Code(s): Z87.891 - Personal history of nicotine dependence Category: Social Hx (6) Iron deficiency: Code(s): E61.1 - Iron deficiency Category: Medical (7) Anemia: Code(s): D64.9 - Anemia, unspecified Category: Medical Qualifiers: Anemia type: iron deficiency Iron deficiency anemia type: unspecified iron deficiency Qualified Code(s): D50.9 - Iron deficiency anemia, unspecified (8) Pneumococcal vaccination declined: Code(s): Z28.21 - Immunization not carried out because of patient refusal Category: Medical (9) Flu vaccine refused: Code(s): Z28.21 - Immunization not carried out because of patient refusal Category: Medical Plan Patient Instructions - Continue taking your current medications as prescribed. - Take Vitamin D 1000 units (25 mcg) every day. You can buy this over the counter. - You may take Vitamin B12 once a week if you like. - Take magnesium glycinate every night. This can help with leg cramps and may also help you sleep. This is available over the counter. - Control your diet to help manage your cholesterol. - An order has been placed for you to get fasting blood tests done in six months before your next visit. - Please make a follow-up appointment to be seen in six months. - You may want to consider having a bone density scan next year. You can call your insurance to see if it is covered. - since you continue to be slightly anemic i have added ferritin level in your next lab order Orders: Orders Complete Blood Count Auto Diff 5 Months E53.8 - Deficiency of other specified B group vitamins, E78.9 - Disorder of lipoprotein metabolism, unspecified, I10 - Essential (primary) hypertension, Z00.01 - Encounter for general adult medical examination with abnormal findings, Z87.891 - Personal history of nicotine dependence Vitamin D 25-OH (D2 and D3) 5 Months E53.8 - Deficiency of other specified B group vitamins, E78.9 - Disorder of lipoprotein metabolism, unspecified, I10 - Essential (primary) hypertension, Z00.01 - Encounter for general adult medical examination with abnormal findings, Z87.891 - Personal history of nicotine dependence Ferritin Today D50.9 - Iron deficiency anemia, unspecified, E61.1 - Iron deficiency Comprehensive [place]. Panel Fast 5 Months E53.8 - Deficiency of other specified B group vitamins, E78.9 - Disorder of lipoprotein metabolism, unspecified, I10 - Essential (primary) hypertension, Z00.01 - Encounter for general adult medical examination with abnormal findings, Z87.891 - Personal history of nicotine dependence Lipid Panel 5 Months E53.8 - Deficiency of other specified B group vitamins, E78.9 - Disorder of lipoprotein metabolism, unspecified, I10 - Essential (primary) hypertension, Z00.01 - Encounter for general adult medical examination with abnormal findings, Z87.891 - Personal history of nicotine dependence Vitamin B12 5 Months E53.8 - Deficiency of other specified B group vitamins, E78.9 - Disorder of lipoprotein metabolism, unspecified, I10 - Essential (primary) hypertension, Z00.01 - Encounter for general adult medical examination with abnormal findings, Z87.891 - Personal history of nicotine dependence TSH reflex Free T4 5 Months E53.8 - Deficiency of other specified B group vitamins, E78.9 - Disorder of lipoprotein metabolism, unspecified, I10 - Essential (primary) hypertension, Z00.01 - Encounter for general adult medical examination with abnormal findings, Z87.891 - Personal history of nicotine dependence Medications: New cholecalciferol (vitamin D3) 25 mcg PO DAILY 90 caps 0RF
--- OUTSIDE RECORDS SUMMARY | 2025-11-15 11:24 | XMS_ITS | Clinical Summary ---
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
== END 2025-11-15 11:50 | disposition home or self-care (01) ==
LOC: HO.HMCC 11:22
PROVIDERS: PCP Internal Medicine; Visit Provider Internal Medicine
DX: Z00.01 Encounter for general adult medical examination with abnormal findings (principal); I10 Essential (primary) hypertension; E78.9 Disorder of lipoprotein metabolism, unspecified; D50.9 Iron deficiency anemia, unspecified; E53.8 Deficiency of other specified B group vitamins; Z87.891 Personal history of nicotine dependence; Z28.21 Immunization not carried out because of patient refusal